=== PATIENT | female | born 1980 | race Caucasian/White ===

== ENCOUNTER 2024-02-14 11:03 | Inpatient (IN) | payer OTHER, SELFPAY ==
[2024-02-11 17:04] VITALS: BP 178/102
[2024-02-11 17:18] LABS: % Basophils 0.3 % (0-2); % Immature Granulocytes 0.3 % (0-0.5); % Lymphocytes 16.5 % (20.5-51.1); % Monocytes 4.7 % (1.7-9.3); % Neutrophils 77.2 % (42.2-75.2); Absolute Eosinophils 0.1 10^3/uL (0-0.7); Absolute Lymphocytes 1.9 10^3/uL (1.2-3.4); Absolute Monocytes 0.5 10^3/uL (0.1-0.6); Hematocrit 41.9 % (37.0-47.0); Hemoglobin 14.3 g/dL (12.0-16.0); Mean Corp Hgb Conc. 34.1 g/dL (33.0-37.0); Mean Corpuscular Hgb 29.4 pg (27.0-31.0); Mean Corpuscular Volume 86.2 fL (81.0-99.0); Mean Platelet Volume 10.6 fL (7.4-10.4); Nucleated Red Blood Cells % 0 %; Platelet Count 342 10^3/uL (130-400); Red Blood Cell Count 4.86 10^6/uL (4.20-5.40); Red Cell Dist. Width 12.5 % (11.5-14.5); White Blood Cell Count 11.6 10^3/uL (4.8-10.8)
[2024-02-11 17:36] LABS: HCG, Serum Qualitative Screen Negative
[2024-02-11 17:38] LABS: ALT (SGPT) 35 U/L (0-35); AST (SGOT) 25 U/L (14-36); Albumin 4.4 g/dl (3.5-5.0); Alkaline Phosphatase 80 U/L (38-126); Blood Urea Nitrogen 11 mg/dl (7-17); Calcium 10.1 mg/dl (8.4-10.2); Carbon Dioxide 24 mmol/L (22-30); Chloride 105 mmol/L (98-107); Glucose 97 mg/dl (70-99); Sodium 137 mmol/L (135-145); Total Bilirubin 1.1 mg/dl (0.2-1.3); eGFR > 60.00
--- NOTE | 2024-02-11 20:04 | ED.GENMED ---
History of Present Illness
General
Chief Complaint: Generalized Pain
Source: patient
Exam Limitations: none
Time Seen by Provider: 02/11/24 19:34
Travel History
Have you had any contact with someone who has COVID-19?: No
Do you have any symptoms of coronavirus? Fever > 100 degrees, chills, cough, shortness of breath, sore throat, loss of taste or smell, muscle aches, or headache?: No
History of Present Illness
History of Present Illness:
This is a 43 year old female that comes in with c/o pain. States that she has Complex regional pain syndrome. States that she has had a flare for the past 5 days. States that she normally only has pain in the one leg but now she has pain in both
legs. State that all her pain medication is not helping. She called her Pain management and was told to come to the ER. States that she also has left sided abd pain and did vomit today. States that she has a headache with dizziness. Denies any
fever, chills, chest pain, SOB, nausea, diarrhea, urinary burning.
Past History
Past History
ED Past Medical History: Psychiatric (Anxiety, Panic disorder) and Other (Migraine headaches, Renal calculus, Femur fracture, Complex regional pain syndrome); Negative Asthma
ED Past Surgical History: Orthopedic (ORIF left femur fx age 9)
Social History
Tobacco: Smoker
Alcohol: None
Drug: None
Personal:
Living: with family
Employment: Employed
Family History
Family History: Other (No family history of kidney stones)
Review of Systems
Review of Systems
All Other Systems: ROS reviewed and negative except as documented in HPI and ROS
Constitutional: Reports no symptoms; Denies fever or chills
EENT: Reports no symptoms
Respiratory: Reports no symptoms; Denies cough or trouble breathing
Cardiac: Reports no symptoms; Denies chest pain
ABD/GI: Reports abdominal pain and vomiting; Denies nausea or diarrhea
: Reports no symptoms; Denies dysuria, frequency or urgency
Musculoskeletal: Reports other (Bilateral leg pain)
Skin: Reports no symptoms
Neurological: Reports dizzy and headache
Psychiatric: Reports no symptoms
Phy Exam
General Physical Exam
General Presentation: no apparent distress
General age: appears stated age
General Skin: warm and dry
General Habitus: normal
General Mental: alert
General Hydration: dry mucous membranes
ENT Exam
ENT Exam: TM's normal, pharynx normal and neck supple
Eye Exam
Eye Exam: EOMI
Cardiovascular Exam
Cardiovascular Exam: regular rate/rhythm, no edema, no murmur and normal peripheral pulses
Pulmonary Exam
Pulmonary Exam: lungs clear, no respiratory distress, no rales, chest non tender, no crackles, no rhonchi, no wheezing and no cough
Gastrointestinal Exam
Gastrointestinal Exam: normal bowel sounds, soft, no organomegaly, no pulsatile mass, non distended and tender (Left sided abd tenderness with palpation)
Musculoskeletal Exam
Musculoskeletal Exam: full ROM and no edema
Skin Exam
Skin Exam: normal color, warm/dry, no rash and no petechia
Psychiatric Exam
Psychiatric Exam: normal mood/affect
Course
Orders/Labs/Results
Orders:
Orders
02/11/24 17:08
Test Result ONCE
02/11/24 17:12
Complete Blood Count/With Diff Urgent
Comprehensive Metabolic Panel Urgent
HCG, Serum Qualitative Screen Urgent
02/11/24 20:02
0.9% Sodium Chloride 1000 ml [Nss] 1,000 ml IV BOLUS
Dexamethasone Sod Phosphate [Decadron] 10 mg IV NOW STA
HYDROmorphone [Dilaudid] 1 mg IV NOW STA
Ketorolac [Toradol] 30 mg IV NOW STA
02/11/24 20:06
CT Abd/pelvis W Iv Cont Urgent
Comment:
Reason For Exam: Left sided abd pain
Abnormal Lab Results
02/11/24
17:12
WBC 11.6 H 10^3/uL
(4.8-10.8)
MPV 10.6 H fL
(7.4-10.4)
Absolute Neuts (auto) 9.0 H 10^3/uL
(1.4-6.5)
Neutrophils % 77.2 H %
(42.2-75.2)
Lymphocytes % 16.5 L %
(20.5-51.1)
02/11/24 17:12
02/11/24 17:12
WBC mildly elevated. HCG negative.
Vital Signs
Initial and Last Documented VS:
Initial Vital Signs
Temp Pulse Resp BP Pulse Ox
98.7 F 73 18 178/102 98
02/11/24 17:04 02/11/24 17:04 02/11/24 17:04 02/11/24 17:04 02/11/24 17:04
Last Documented Vital Signs
Temp Pulse Resp BP Pulse Ox
98.7 F 73 18 178/102 98
02/11/24 17:04 02/11/24 17:04 02/11/24 17:04 02/11/24 17:04 02/11/24 17:04
MDM/Problems Addressed
Differential Diagnosis Includes:
Diverticulitis, Chronic pain syndrome.
MDM/Problems Addressed:
This is a 43 year old female that comes in with c/o a 5 day flare of her CRPS. States that she has pain in both legs and today she started with vomiting. States that she has not been able to eat.
Will get CT of abd, Labs, Medicated for pain and give IV fluids.
Back into see patient. Patient is not feeling any better and states that she just wants the pain to stop. States that she can't go home with this pain. Will further medicate with pain medication and admit. Hospitalist notified.
Chronic conditions affecting care:
Complex regional pain syndrome.
Acute Exacerbation and/or Progression of Chronic Illness:
Chronic pain
*Radiology
Radiology exam reviewed: radiology read reviewed (CT-NO acute inflammatory process within the abd or pelvis. NO evidence of bowel obstruction. No obstructive uropathy. Nonspecific trace pleural effusion, right greater than left. Mild fatty
infiltration of liver. Stable top normal to slightly enlarged spleen. )
*Pulse Oximetry
Patient hypoxic: no
*EKG
Interpreted by ED Provider?: NA
Rate: EKG- N/A
*Sales Representative [employer] Interpretation
Rate: Sales Representative [employer]- N/A
*Critical Care Note
Total Time (30-74mins, 75-104mins- exclusive of procedures): Not Applicable
ED Attending Note
-
Portions of this chart may have been created with voice recognition software.� Occasional wrong word or��sound alike� substitutions may have occurred due to the inherent limitations of voice recognition software.
Discharge Plan
Departure
Patient Disposition: Admit
Date of Disposition: 02/11/24
Time of Disposition: 22:40
Admit to: Med/Surg
Presentation/result/management discussed w/ accepting MD/DO: Hospitalist
Patient with high blood pressure during this ER visit?: Yes
Condition: Good
Covid-19: Not Applicable
Discharge Problem:
Complex regional pain syndrome
Prescriptions:
No Action
tizanidine 2 mg Tablet
2 mg PO TID PRN (Reason: .asdirected)
sertraline 100 mg Tablet
100 mg PO DAILY
hydromorphone 2 mg Tablet
2 mg PO Q6H PRN (Reason: pain)
pregabalin [Lyrica] 100 mg Capsule
100 mg PO TID
albuterol sulfate [Proventil HFA] 90 mcg/actuation HFA aerosol inhaler
2 puff inhalation Q6H PRN (Reason: shortness of breath or wheezing) Qty: 8.5 2RF
prednisone 50 mg tablet
50 mg PO DAILY Qty: 5 0RF
Referrals:
Jimmy Delgado PA-C [Family Provider] -
Interventions
Interventions:
*Risk Screen - Suicide Last Done: 02/11/24 20:15
*General Assessment Last Done: 02/11/24 20:15
*Neglect/Abuse Screening Last Done: 02/11/24 20:15
*ED COVID-19 Vaccine History Last Done: 02/11/24 17:04
Discharge Date and Time
Print Language: [place]
[2024-02-11] MEDS: DILAUDID 1 MG IV ×2 (20:15→22:42)
[2024-02-11] MEDS: TORADOL 30 MG IV (20:16)
[2024-02-11] MEDS: DECADRON 10 MG IV (20:16)
[2024-02-11] MEDS: NSS 1000 IV (20:17)
[2024-02-11 22:46] VITALS: BP 169/87
--- NOTE | 2024-02-11 23:26 | HPS.HSE ---
Family Physician
-
Family Physician: Jimmy Delgado
Chief Complaint
-
pain
History of Present Illness
43-year-old female past medical history of chronic regional pain syndrome, anxiety, panic disorder, migraines, renal calculi, spinal degenerative disc disease presenting with severe pain.
Patient normally has chronic regional pain syndrome with pain of the left hip radiating down the lower extremity which is manageable by taking oxycodone 20 mg every 4-6 hours.
5 days ago she developed severe pain in the lower back and down both extremities as well as pain in the upper back radiating up to the posterior part of her head described as electric shock sensations. She also has pain down both arms. The pain is
described as burning and as though her extremities have fallen asleep. She denies any new stressors, medical conditions, change in medications to explain this flareup in symptoms. She did have an episode of vomiting today and some pain to left
groin. She denies constipation or diarrhea. She is having difficulty ambulating due to the pain.
She denies fevers or chills, urinary symptoms, chest pain or shortness of breath.
He smokes occasionally. Denies alcohol. Denies marijuana use.
Medical History
Past Medical History
Past Medical History: Reports Other (chronic regional pain syndrome, anxiety, panic disorder, migraines, renal calculi, spinal degenerative disc disease )
Past Surgical History: Reports None
Social History
Tobacco: Non-smoker
Alcohol: None
Drug: None
Family History
Family History: Not pertinent
Allergies / Home Medications
Allergies reflects when Allergies were last updated in [facility].
Home Medications with original date entered in [facility]
Allergy/Medication List:
Allergies
Allergy/AdvReac Type Severity Reaction Status Date / Time
No Known Allergies Allergy Verified 02/11/24 17:07
Home Medications
sertraline 100 mg tablet 100 mg PO BID 07/06/23
tizanidine 2 mg tablet 2 mg PO TID PRN muscle spasms 07/06/23
oxycodone 20 mg tablet 20 mg PO QID 02/11/24
pregabalin 150 mg capsule 150 mg PO TID 02/11/24
Review of Systems
-
History Source: Patient
A 12 point ROS was completed and negative except as noted: Yes
Constitutional: Reports No Symptoms
EENT: Reports No Symptoms
Respiratory: Reports No Symptoms
Cardiac: Reports No Symptoms
Abdomen/GI: Reports No Symptoms
: Reports No Symptoms
Musculoskeletal: Reports No Symptoms
Skin: Reports No Symptoms
Neurological: Reports No Symptoms
Endocrine: Reports No Symptoms
Hematologic/Lymphatic: Reports No Symptoms
Psych: Reports No Symptoms
Physical Exam
Vital Signs
Vital Signs
Temp Pulse Resp BP Pulse Ox
98.7 F 60 20 169/87 100
02/11/24 17:04 02/11/24 22:46 02/11/24 22:46 02/11/24 22:46 02/11/24 22:46
Physical Exam
General: Well Developed, Well Nourished and No Apparent Distress
HEENT: NormoCephalic, Moist mucous membranes and Atraumatic
Respiratory: Clear
Cardiac: S1/S2 and Regular Rhythm; No Murmur or Rub
GI: Soft, Non Tender, Non Distended and Normal Bowel Sounds; No Organomegaly
Rectal: Deferred by Provider
Musculoskeletal: No Clubbing, No Cyanosis and No Edema
Skin: No Rash
Neuro: Nonfocal/grossly intact
Laboratory Results
-
02/11/24 17:12
02/11/24 17:12
Laboratory Results
Total Bilirubin 1.1 mg/dl (0.2-1.3) 02/11/24 17:12
AST 25 U/L (14-36) 02/11/24 17:12
ALT 35 U/L (0-35) 02/11/24 17:12
Alkaline Phosphatase 80 U/L (38-126) 02/11/24 17:12
Data Reviewed
-
Lab Data: Labs Reviewed by me
Old Records: Reviewed
Impression/Plan
-
IMPRESSION:
PLAN:
# Complex regional pain syndrome flare
-CT abdomen pelvis without evidence of any acute process
-IV fluids given
-Given IV Dilaudid, ketorolac, dexamethasone in ER with only temporary relief in pain
-Add tylenol
-Continue Toradol, Dilaudid for pain
-Increase Dilaudid to 1.5 mg which is roughly equivalent to 20 mg oxycodone which she takes at home
-Continue tizanidine
-Continue pregabalin
-Would likely benefit from SNRI such as duloxetine instead of sertraline
-May need to discuss with her pain management doctor regarding management
History of spinal degenerative disc disease
Anxiety/panic disorder
-Continue sertraline
History of migraines
History of renal calculi
Full code
DVT prophylaxis�heparin
Regular diet
[2024-02-12] MEDS: TORADOL 30 MG IV ×4 (02:03→20:10)
[2024-02-12 02:28] VITALS: BP 147/93
[2024-02-12] MEDS: DILAUDID 1.5 MG IV ×4 (06:03→21:56)
[2024-02-12 06:27] LABS: % Basophils 0.1 % (0-2); % Eosinophils 0.1 % (0-6); % Immature Granulocytes 0.6 % (0-0.5); % Lymphocytes 9.1 % (20.5-51.1); % Monocytes 0.9 % (1.7-9.3); % Neutrophils 89.2 % (42.2-75.2); Absolute Immature Granulocytes 0.1 10^3/uL (0-0.05); Absolute Lymphocytes 1.4 10^3/uL (1.2-3.4); Absolute Monocytes 0.1 10^3/uL (0.1-0.6); Absolute Neutrophils 13.5 10^3/uL (1.4-6.5); Hematocrit 44.4 % (37.0-47.0); Hemoglobin 14.8 g/dL (12.0-16.0); Mean Corp Hgb Conc. 33.3 g/dL (33.0-37.0); Mean Corpuscular Hgb 29.1 pg (27.0-31.0); Mean Corpuscular Volume 87.4 fL (81.0-99.0); Mean Platelet Volume 10.9 fL (7.4-10.4); Nucleated Red Blood Cells % 0 %; Platelet Count 360 10^3/uL (130-400); Red Blood Cell Count 5.08 10^6/uL (4.20-5.40); Red Cell Dist. Width 12.2 % (11.5-14.5); White Blood Cell Count 15.1 10^3/uL (4.8-10.8)
[2024-02-12 06:57] LABS: ALT (SGPT) 32 U/L (0-35); AST (SGOT) 21 U/L (14-36); Albumin 4.4 g/dl (3.5-5.0); Alkaline Phosphatase 86 U/L (38-126); Blood Urea Nitrogen 12 mg/dl (7-17); Calcium 10.1 mg/dl (8.4-10.2); Carbon Dioxide 20 mmol/L (22-30); Chloride 106 mmol/L (98-107); Glucose 130 mg/dl (70-99); Potassium 4.4 mmol/L (3.5-5.1); Sodium 137 mmol/L (135-145); eGFR > 60.00
[2024-02-12 07:00] VITALS: BP 198/73
[2024-02-12] MEDS: LYRICA 150 MG PO ×3 (07:32→21:55)
[2024-02-12] MEDS: HEPARIN 5000 UNITS SC ×2 (07:32→20:10)
[2024-02-12] MEDS: TYLENOL 650 MG PO ×2 (07:33→14:07)
[2024-02-12 07:39] VITALS: BMI 31.9
[2024-02-12] MEDS: ZOLOFT 100 MG PO ×2 (08:21→20:10)
[2024-02-12] MEDS: ZANAFLEX 2 MG PO ×2 (09:31→14:07)
--- NOTE | 2024-02-12 12:29 | W.PN.HOSP.TC ---
Today's Communication/Plan
-
Change Toradol to [id number]
Assessment / Plan
Assessment / Plan
Gen-AAOx3, NAD, obese
HEENT-NC, AT, anicteric, clear oral mm
Neck-supple
CV-reg, no M, +S1/S2
Lungs-clear B/L
Abd-soft, NT, ND
Ext-no edema
Musculoskeletal-no cyanosis, clubbing
Skin-warm and dry
Neuro-4/5 LLE & RUE motor
Psych-calm, cooperative
Intractable pain -with underlying complex regional pain syndrome as the likely trigger. She is followed by pain management, Dr. Chad Fajardo as an outpatient. I left a voicemail for Dr. Fajardo to call me back. [phone].
Change Toradol to [id number]. Continue Lyrica. She has been on chronic oxycodone 20 mg 4 times daily. Currently on IV Dilaudid.
PT/OT.
Would consider changing her sertraline to Cymbalta for better pain control, can be done as an outpatient. Discussed with patient.
Anxiety disorder
Obesity due to excess calories
Full code
Anticipated Discharge: Within 24 hours
Subjective/Interval History
-
Date of Service: February 12, 2024
Patient seen and examined. Complaining of bilateral lower extremity pain, mostly left sided.
Objective Data
-
Labs:
Laboratory Results
02/12/24 02/12/24
05:59 06:00
WBC 15.1 H
Hgb 14.8
Hct 44.4
Plt Count 360
Sodium 137
Potassium 4.4
Chloride 106
Carbon Dioxide 20 L
BUN 12
Creatinine 0.6
Glucose 130 H
Calcium 10.1
Total Bilirubin 1.0
AST 21
ALT 32
Alkaline Phosphatase 86
Vital Signs:
Vital Signs
Temp Pulse Resp BP Pulse Ox
98.5 F 73 12 198/73 99
02/12/24 07:00 02/12/24 07:00 02/12/24 07:00 02/12/24 07:00 02/12/24 07:00
Review of Systems
-
History Source: Patient
All other systems: Reviewed and negative
[2024-02-12 14:14] VITALS: BP 136/91
[2024-02-12 16:24] VITALS: BP 149/81
[2024-02-12 16:28] VITALS: BMI 30.4
--- NOTE | 2024-02-12 17:07 | PTCARENOTE ---
Received pt from ER via stretcher, accompanied by ER staff. Pt AAO x3, ROMERO; able to ambulate to bed with assistance/walker, c/o [pain in lower back/legs. Fall prec initiated. VSS. On room air- pulseox 99%. Abd obese, soft, to start reg diet.
Pt DTV- will void in BR. Resting in bed at present. Oriented to 4East. Will continue to monitor.
[2024-02-12] MEDS: FLUSH (NSS) 1 FLUSH IV (17:14)
[2024-02-12 23:30] VITALS: BP 148/83
[2024-02-13] MEDS: TORADOL 30 MG IV ×4 (01:31→20:59)
[2024-02-13 07:55] VITALS: BP 150/99
[2024-02-13] MEDS: ZOLOFT 100 MG PO ×2 (08:39→20:59)
[2024-02-13] MEDS: LYRICA 150 MG PO ×3 (08:39→22:09)
[2024-02-13] MEDS: DILAUDID 1.5 MG IV ×2 (08:40→20:02)
[2024-02-13] MEDS: HEPARIN 5000 UNITS SC ×2 (08:48→21:06)
--- NOTE | 2024-02-13 10:03 | W.PN.HOSP.TC ---
Today's Communication/Plan
-
Resume oxycodone [id number]
Assessment / Plan
Assessment / Plan
Gen-AAOx3, NAD, obese
HEENT-NC, AT, anicteric, clear oral mm
Neck-supple
CV-reg, no M, +S1/S2
Lungs-clear B/L
Abd-soft, NT, ND
Ext-no edema
Musculoskeletal-no cyanosis, clubbing
Skin-warm and dry
Neuro-4/5 LLE & RUE motor
Psych-calm, cooperative
Intractable pain -with underlying complex regional pain syndrome as the likely trigger. She is followed by pain management, Dr. Chad Fajardo as an outpatient. I left a voicemail for Dr. Fajardo to call me back on 02/11, no received a call back.
[phone]. I called again today on 02/12 and I got a hold of the receptionist doctor's office who took down my callback number to my cell phone, requested Dr. Fajardo to call me back.
Continue Toradol [id number]. Continue Lyrica. She has been on chronic oxycodone 20 mg 4 times daily, will resume. Continue as needed IV Dilaudid.
PT/OT.
Would consider changing her sertraline to Cymbalta for better pain control, can be done as an outpatient. Discussed with patient.
Anxiety disorder
Obesity due to excess calories
Full code
Updated at bedside.
Anticipated Discharge: Within 24 hours
Subjective/Interval History
-
Date of Service: February 13, 2024
Patient seen/examined. Still with significant pain, mainly in left buttock and LLE. 8/10 intensity.
Objective Data
-
Vital Signs:
Vital Signs
Temp Pulse Resp BP Pulse Ox
98.1 F 61 20 150/99 99
02/13/24 07:55 02/13/24 07:55 02/13/24 07:55 02/13/24 07:55 02/13/24 07:55
I&O
02/12/24 02/13/24 02/14/24
06:59 06:59 06:59
Intake Total 250 / 250
Balance 250 / 250
Review of Systems
-
History Source: Patient
All other systems: Reviewed and negative
[2024-02-13] MEDS: ROXICODONE 20 MG PO ×3 (12:27→22:09)
--- NOTE | 2024-02-13 12:28 | CM ---
Chart reviewed and Elizabeth visited bedside. She is a 42 year old female, admitted with primary dx of comples regional pain syndrome.
Elizabeth resides in a ranch home with 1 entry step, along with her and 4 children, ages 5-18yo. 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 The patient has a walker and uses
it as needed 'when pain gets bad'. Pt reports she was receiving outpatient physical therapy at in the past.
PCP - Jimmy Delgado [phone]
Pharmacy - [facility] in [place], [place]
D/C plan: Return home with family once pain control has been established. No needs anticipated
--- NOTE | 2024-02-13 14:38 | CON.NEURO4 ---
Consultation - Neurology 4
-
CONSULTING PHYSICIAN: Alejandro Waddell
REFERRING PHYSICIAN: Hospitalist
DICTATED BY: Alejandro Waddell
DATE/TIME OF REQUEST: 02/13/24
DATE/TIME OF CONSULTATION: 02/13/24
Reason for Consultation: Reflex sympathetic dystrophy worsening
History of Present Illness:
Patient is a 43-year-old woman with past medical history of obesity, migraines, anxiety, reflexive dystrophy mainly involving the bilateral legs presents to the hospital with worsening pain over the past 7 days.
Patient cannot think of any significant stressors or physical trauma or illnesses that led to this worsening of pain. She did have a little bit of tying in a dog leash when she was walking her dog around 10 days ago but she felt fine afterwards.
Denies any recent fever chills or sick contacts normal bowel and bladder function no rashes and no recent head or neck trauma. Has a normal stressors of having a big family but denies any recent serious psychosocial stressors or trauma.
She denies any recent changes in her regimen pregabalin or oxycodone. Reports that she was changed from hydromorphone to oxycodone around 3 to 4 months ago as the hydromorphone seem to be less effective over time. She has been on the hydromorphone
for around 7 months by her estimation. She has seen an increase in her chronic average daily pain over the past year.
She reports she did have a EMG study around 3 months ago but was not quite sure of the exact diagnosis, reports that there did seem to be some abnormalities in sensation as well as speed of the nerves.
I had seen her approximately 1 year ago and I thought that she had diabetic/idiopathic amyotrophy as cause of pain.
Past Medical History: Prediabetes, migraine headache, anxiety, degenerative disc disease of spine, reflex sympathetic dystrophy involving left and right legs
Surgical History: None
Family History: Non-contributory
Social History: Lives at home with her , has 4 children, one of her children graduating high school soon, rare cigarettes, no significant alcohol
Allergies: No known drug allergies
Review of Symptoms:
Patient denies any fever, headache, chest pain, shortness of breath, GI or symptoms.
Physical Exam:
Middle-aged woman seated in bed appears comfortable no distress, no signs of head or neck trauma oropharynx is clear eyes are clear neck with no masses, heart rate regular breathing unlabored abdomen is obese soft nontender, no lower extremity rash
redness or edema is seen. Some cracking of fingernails on the hands bilaterally.
Neurologic Examination:
The patient is awake, alert and oriented x 3. She is able to follow commands and answer questions appropriately. There is no aphasia or dysarthria. On cranial nerve assessment, pupils are 3 mm bilateral, round and reactive to light and
accommodation. Visual esposito are full. Extraocular movements are intact. Facial sensations are intact and bilaterally symmetrical, there is no facial asymmetry. Hearing is intact bilaterally to normal conversation volume. Tongue palate and uvula
are midline. Sternocleidomastoid strengths are full bilaterally. Mild pain limited weakness of left hip flexion. Shoulder abduction and arm flexion 5/5 bilaterally. There is no drift or involuntary movement noted. Reflexes 2+ in achilles patella
biceps and brachioradialis. Intact to vibratory sense throughout, no allodynia on light touch to lets. There was no extinction noted on double simultaneous stimulation. Coordination is intact by finger to nose bilaterally.
Impressions
1. Likely a reflex sympathetic dystrophy given pain, sensory change, motor dysfunction. I do have concern for the potential for opioid-induced hyperalgesia playing a role. Not many other obvious triggers for the current worsening of symptoms.
Not clear on what her previous EMG results were and if there was neuropathy or nerve injury present.
2.
3.
4.
Recommendations:
1. Would increase Pregabalin to 150 mg QID
2. Try 125 mg IV methylprednisolone once tomorrow morning
3. Discussed potential for further advanced pain treatments such as ketamine infusions or spinal cord stimulator as options to consider for the future
4. Discussed my concern for the potential presence of opioid induced hyperalgesia
5. Monitor for excessive drowsiness from medications
6. Agree with consideration for switching sertraline to Duloxetine as outpatient
7. Continue to follow with pain medicne as outpatient
Discussed patient care with: Patient, Hospitalist
[2024-02-13 15:55] VITALS: BP 142/82
[2024-02-13] MEDS: ZANAFLEX 2 MG PO (18:26)
[2024-02-13 23:57] VITALS: BP 133/77
[2024-02-14] MEDS: TORADOL 30 MG IV ×4 (02:41→20:20)
[2024-02-14] MEDS: ROXICODONE 20 MG PO ×4 (08:23→22:57)
[2024-02-14] MEDS: LYRICA 150 MG PO ×4 (08:23→22:56)
[2024-02-14] MEDS: HEPARIN 5000 UNITS SC ×2 (08:24→20:27)
[2024-02-14] MEDS: ZOLOFT 100 MG PO ×2 (08:24→20:20)
[2024-02-14] MEDS: SOLU-MEDROL PF 125 MG IV (08:29)
[2024-02-14 09:21] VITALS: BP 143/83
--- NOTE | 2024-02-14 10:25 | W.PN.HOSP.TC ---
Today's Communication/Plan
-
Continue current care
Assessment / Plan
Assessment / Plan
Gen-AAOx3, moderate distress due to pain, obese
HEENT-NC, AT, anicteric, clear oral mm
Neck-supple
CV-reg, no M, +S1/S2
Lungs-clear B/L
Abd-soft, NT, ND
Ext-no edema
Musculoskeletal-no cyanosis, clubbing
Skin-warm and dry
Neuro-4/5 LLE & RUE motor
Psych-calm, cooperative
Intractable pain -with underlying complex regional pain syndrome as the likely trigger. She is followed by pain management, Dr. Chad Fajardo as an outpatient. I was able to call Dr. Fajardo's cell phone ([phone]) and left a voicemail for him to
call me back this morning.
Continue Toradol [id number]. Continue Lyrica. She has been on chronic oxycodone 20 mg 4 times daily, will resume. Continue as needed IV Dilaudid.
PT/OT.
Would consider changing her sertraline to Cymbalta for better pain control, can be done as an outpatient. Discussed with patient.
Appreciate neurology input. Lyrica dose increased. Methylprednisolone administered this morning.
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 Discussed with patient and explained that ultimately coming off of long-term opioids would be the best treatment.
Anxiety disorder
Obesity due to excess calories
Full code
Dispo -if we can get her pain under reasonable control then she can be discharged and follow-up closely with pain management. Patient agrees with plan.
Anticipated Discharge: 24 - 48 hours
Subjective/Interval History
-
Date of Service: February 14, 2024
Patient seen and examined. Still with significant pain. Last night her pain level was down to 7 out of 10. Able to ambulate with walker.
Objective Data
-
Vital Signs:
Vital Signs
Temp Pulse Resp BP Pulse Ox
99 F 63 20 143/83 97
02/14/24 09:21 02/14/24 09:21 02/14/24 09:21 02/14/24 09:21 02/14/24 09:21
I&O
02/13/24 02/14/24 02/15/24
06:59 06:59 06:59
Intake Total 250 / 250 1700 / 1700
Balance 250 / 250 1700 / 1700
Review of Systems
-
History Source: Patient
All other systems: Reviewed and negative
[2024-02-14] MEDS: DILAUDID 1.5 MG IV ×2 (10:53→21:26)
[2024-02-14] MEDS: ZANAFLEX 2 MG PO (13:52)
[2024-02-14 16:43] VITALS: BP 123/74
--- NOTE | 2024-02-14 18:30 | CM ---
Elizabeth continues with Chronic pain and anxiety, limiting her mobility. She is working with therapy with a goal to return home and the hope that her pain decreases sooner than later. Family is supportive.
Plan: Discharge to home with no services anticipated at this time.
--- NOTE | 2024-02-14 19:48 | PTCARENOTE ---
Received patient this am AAOx3. Pt complained of pain this am. Pt medicated with standing pain medications with moderated relief. 1045 Pt complained of 9/10 pain in left groin,left hip and left back. Medicated with Dilaudid 1.5 mg IV with relief.
Pt tolerated diet. Pt OOB with assistance x 1-2 and walker to bathroom. 1345 Pt complained of muscle spasms in left groin an leg. Medicated with Zanaflex with relief. Spoke to Dr. Angelo regarding patients pain. Made patient comfortable. Cont to
assess patient status.
[2024-02-14 23:00] VITALS: BP 140/79
[2024-02-15] MEDS: ZANAFLEX 2 MG PO (00:37)
[2024-02-15] MEDS: TORADOL 30 MG IV ×4 (01:02→19:59)
[2024-02-15] MEDS: DILAUDID 1.5 MG IV ×4 (03:15→21:06)
[2024-02-15 07:36] VITALS: BP 160/93
[2024-02-15] MEDS: ROXICODONE 20 MG PO ×4 (07:47→22:15)
[2024-02-15] MEDS: LYRICA 150 MG PO ×4 (07:47→22:15)
[2024-02-15] MEDS: ZOLOFT 100 MG PO ×2 (07:47→20:00)
[2024-02-15] MEDS: HEPARIN 5000 UNITS SC ×2 (07:47→20:00)
--- NOTE | 2024-02-15 10:43 | W.PN.HOSP.TC ---
Today's Communication/Plan
-
Add melatonin
Await anesthesia input
Assessment / Plan
Assessment / Plan
Gen-AAOx3, moderate distress due to pain, obese
HEENT-NC, AT, anicteric, clear oral mm
Neck-supple
CV-reg, no M, +S1/S2
Lungs-clear B/L
Abd-soft, NT, ND
Ext-no edema
Musculoskeletal-no cyanosis, clubbing
Skin-warm and dry
Neuro-4/5 LLE & RUE motor
Psych-calm, cooperative
Intractable pain -with underlying complex regional pain syndrome as the likely trigger. She is followed by pain management, Dr. Chad Fajardo as an outpatient. So far I have not received a call back from Dr. Fajardo. I tried calling again this
morning but only got voicemail.
Continue Toradol [id number]. Continue Lyrica, oxycodone. Continue as needed IV Dilaudid.
PT/OT.
Would consider changing her sertraline to Cymbalta for better pain control, can be done as an outpatient. Discussed with patient.
Appreciate neurology input. Lyrica dose increased. Methylprednisolone administered this morning.
Agree with possibility of opioid-induced hyperalgesia as a furniture mover driver for her pain. Discussed with patient and explained that ultimately coming off of long-term opioids would be the best treatment.
I did speak with on-call pain management physician Dr. Devi who recommended considering ketamine infusion. I spoke with the anesthesia service, Dr. Perez, to see if he is willing to administer ketamine for her pain control. He states he has
never administered ketamine for pain on an awake patient and will need to think about it. He will get back to me with his decision. Informed patient.
As a last resort patient will need to be discharged Saturday night early Saturday morning so that she can see her painter interior finish Dr. Fajardo in the office on Saturday for outpatient ketamine infusion.
Anxiety disorder -uses Xanax as needed at home.
Obesity due to excess calories
Full code
Dispo -if we can get her pain under reasonable control then she can be discharged and follow-up closely with pain management. Patient agrees with plan.
Anticipated Discharge: 24 - 48 hours
Subjective/Interval History
-
Date of Service: February 15, 2024
Patient seen and examined. 8 out of 10 pain still.
Objective Data
-
Vital Signs:
Vital Signs
Temp Pulse Resp BP Pulse Ox
98.4 F 60 16 160/93 99
02/15/24 07:36 02/15/24 07:36 02/15/24 07:36 02/15/24 07:36 02/15/24 07:36
I&O
02/14/24 02/15/24 02/16/24
06:59 06:59 06:59
Intake Total 1700 / 1700 1020 / 1020
Balance 1700 / 1700 1020 / 1020
Review of Systems
-
History Source: Patient
All other systems: Reviewed and negative
--- NOTE | 2024-02-15 11:16 | W.PN.UPDATE ---
Update Note
Progress Note Update
Spoke with anesthesia, Dr. Perez, recommends adding clonidine for pain control, lidocaine patches, resuming Xanax for anxiety, acetaminophen [id number].
Patient agrees with plan.
[2024-02-15] MEDS: TYLENOL 1000 MG PO ×3 (11:35→22:14)
[2024-02-15] MEDS: LIDOCAINE 4% PATCH 1 PATCH TOPICAL ×2 (11:37→11:38)
[2024-02-15] MEDS: CATAPRES 0.100000000000000006 MG PO (11:39)
[2024-02-15 15:58] VITALS: BP 124/72
[2024-02-15] MEDS: XANAX 0.5 MG PO (16:24)
--- NOTE | 2024-02-15 16:50 | PTCARENOTE ---
Pt. apical HR 38, Dr. Mesa made aware, orders to follow. Pt. placed on telemetry. Will continue to monitor and report on pt.
[2024-02-15 19:15] VITALS: BP 129/84
[2024-02-15] MEDS: MELATONIN 5 MG PO (22:15)
[2024-02-15] MEDS: TYLENOL PO (22:20)
[2024-02-15 23:47] VITALS: BP 140/83
[2024-02-16] MEDS: TORADOL 30 MG IV ×4 (03:19→21:09)
[2024-02-16 03:28] VITALS: BP 138/82
[2024-02-16 07:45] VITALS: BP 133/71
[2024-02-16] MEDS: LYRICA 150 MG PO ×4 (08:28→22:35)
[2024-02-16] MEDS: TYLENOL 1000 MG PO ×3 (08:28→21:15)
[2024-02-16] MEDS: ZOLOFT 100 MG PO ×2 (08:28→21:11)
[2024-02-16] MEDS: HEPARIN 5000 UNITS SC ×2 (08:29→21:10)
[2024-02-16] MEDS: ROXICODONE 20 MG PO ×4 (08:29→21:15)
[2024-02-16] MEDS: LIDOCAINE 4% PATCH 1 PATCH TOPICAL ×2 (08:33)
[2024-02-16] MEDS: DILAUDID 1.5 MG IV ×4 (09:42→22:36)
--- NOTE | 2024-02-16 10:50 | W.PN.HOSP.TC ---
Today's Communication/Plan
-
Continue current care
Assessment / Plan
Assessment / Plan
Gen-AAOx3, NAD, obese
HEENT-NC, AT, anicteric, clear oral mm
Neck-supple
CV-reg, no M, +S1/S2
Lungs-clear B/L
Abd-soft, NT, ND
Ext-no edema
Musculoskeletal-no cyanosis, clubbing
Skin-warm and dry
Neuro-4/5 LLE & RUE motor
Psych-calm, cooperative
Intractable pain -with underlying complex regional pain syndrome as the likely trigger. She is followed by pain management, Dr. Chad Fajardo as an outpatient. So far I have not received a call back from Dr. Fajardo. I tried calling again this
morning but only got voicemail.
Continue Toradol [id number]. Continue Lyrica, oxycodone. Continue as needed IV Dilaudid.
PT/OT.
Would consider changing her sertraline to Cymbalta for better pain control, can be done as an outpatient. Discussed with patient.
Appreciate neurology input. Lyrica dose increased. Methylprednisolone administered this morning.
Agree with possibility of opioid-induced hyperalgesia as a rivet driver for her pain. Discussed with patient and explained that ultimately coming off of long-term opioids would be the best treatment.
Slept better last night with melatonin, will continue.
Received 1 dose of clonidine and developed bradycardia, discontinued.
Anxiety disorder -uses Xanax as needed at home.
Obesity due to excess calories
Full code
Dispo -patient requesting discharge on Saturday morning so she can go see her dip painter on Saturday for ketamine infusion.
Anticipated Discharge: Within 24 hours
Subjective/Interval History
-
Date of Service: February 16, 2024
Patient seen and examined. Slept better last night. Pain 7.5 out of 10 currently.
Objective Data
-
Vital Signs:
Vital Signs
Temp Pulse Resp BP Pulse Ox
98.7 F 44 16 133/71 100
02/16/24 07:45 02/16/24 07:45 02/16/24 07:45 02/16/24 07:45 02/16/24 07:45
I&O
02/15/24 02/16/24 02/17/24
06:59 06:59 06:59
Intake Total 1020 / 1020 1999
Balance 1020 / 1020 1999
Review of Systems
-
History Source: Patient
All other systems: Reviewed and negative
[2024-02-16 11:10] VITALS: BP 131/93
[2024-02-16 15:59] VITALS: BP 146/94
[2024-02-16 19:54] VITALS: BP 120/87
[2024-02-16] MEDS: MELATONIN 5 MG PO (22:35)
[2024-02-16 23:00] VITALS: BP 122/59
[2024-02-17] MEDS: TORADOL 30 MG IV ×2 (03:30→08:19)
[2024-02-17 03:46] VITALS: BP 126/82
[2024-02-17] MEDS: DILAUDID 1.5 MG IV ×2 (04:18→10:13)
[2024-02-17 07:30] VITALS: BP 108/71
[2024-02-17] MEDS: LIDOCAINE 4% PATCH 1 PATCH TOPICAL ×2 (08:17→08:18)
[2024-02-17] MEDS: LYRICA 150 MG PO ×2 (08:18→12:52)
[2024-02-17] MEDS: ZOLOFT 100 MG PO (08:18)
[2024-02-17] MEDS: ROXICODONE 20 MG PO ×2 (08:18→12:52)
[2024-02-17] MEDS: TYLENOL 1000 MG PO (08:18)
[2024-02-17] MEDS: HEPARIN 5000 UNITS SC (08:19)
--- NOTE | 2024-02-17 09:05 | W.PN.HOSP.TC ---
Today's Communication/Plan
-
Discharge planning today.
Assessment / Plan
Assessment / Plan
Gen-AAOx3, NAD, obese
HEENT-NC, AT, anicteric, clear oral mm
Neck-supple
CV-reg, no M, +S1/S2
Lungs-clear B/L
Abd-soft, NT, ND
Ext-no edema
Musculoskeletal-no cyanosis, clubbing
Skin-warm and dry
Neuro-4/5 LLE & RUE motor
Psych-calm, cooperative
A/P:
Intractable pain -with underlying complex regional pain syndrome as the likely trigger. She is followed by pain management, Dr. Chad Fajardo as an outpatient. So far Dr Rose has not received a call back from Dr. Fajardo. Dr Rose tried calling
again but only got voicemail.
Continue Toradol [id number]. Continue Lyrica, oxycodone. Continue as needed IV Dilaudid.
PT/OT.
Would consider changing her sertraline to Cymbalta for better pain control, can be done as an outpatient. Discussed with patient.
Appreciate neurology input. Lyrica dose increased. Methylprednisolone administered.
Agree with possibility of opioid-induced hyperalgesia as a tilt tray driver for her pain. Discussed with patient and explained that ultimately coming off of long-term opioids would be the best treatment.
Slept better last night with melatonin, will continue.
Received 1 dose of clonidine and developed bradycardia, discontinued.
Patient called her pain specialist and they have an earlier appointment but she could not get it for him today or for this week. She is to remain with appointment of February 25 and try to see if they can move it to an earlier appointment later on but
it has been significantly challenged. I gave the option she might need to follow-up with PCP prior to her pain appointment. Dr. Rose has set up prescriptions for pain which understandably has to be short-term until she follows up with PCP and
pain services. Otherwise, plan to discharge her later today.
Anxiety disorder -uses Xanax as needed at home.
Obesity due to excess calories
Full code
Dispo -plan to discharge later today, afternoon and patient agreeable with plan. For consideration outpatient ketamine infusion.
Anticipated Discharge: Today
Subjective/Interval History
-
Date of Service: February 17, 2024
Patient's pain controlled with current regimen. No new complaints.
Objective Data
-
Vital Signs:
Vital Signs
Temp Pulse Resp BP Pulse Ox
98.3 F 65 18 126/82 98
02/17/24 03:46 02/17/24 03:46 02/17/24 03:46 02/17/24 03:46 02/17/24 03:46
I&O
02/16/24 02/17/24 02/18/24
06:59 06:59 06:59
Intake Total 1999 1600 / 1600 480 / 480
Balance 1999 1600 / 1600 480 / 480
[2024-02-17 09:07] VITALS: BP 108/71
[2024-02-17 11:47] VITALS: BP 133/83
--- NOTE | 2024-02-17 12:52 | W.DCSUMMARY ---
Discharge Summary
Discharge Data
Date of Admission: 02/14/24
Date of Discharge: 02/17/24
-
Pending Results: No
Hospital Course
Patient 43 years old female history of migraines, obesity, reflex dystrophy involving bilateral lower extremities came into the hospital with worsening pain. Patient culprit of exacerbation was unclear and neurology was consulted. There were some
changes on her pain regimen as listed on the discharge medications list and also she was given some steroids while inpatient. Possibility of opioid drug induced hyperalgesia was also contemplated. Consideration for changing sertraline to Cymbalta
as outpatient as well. Her pain was able to be tolerated. Otherwise she is hemodynamically stable. She is to follow-up with primary care physician and her pain specialist as outpatient. She is going to be discharged in stable condition today.
Discharge duration: 35 minutes
Discharge Plan
-
Patient Disposition: Home (Routine Discharge)
Discharge Diagnosis/Procedures: Complex regional pain syndrome, intractable pain
Condition: Fair
Diet: Regular
Activity: As tolerated
Driving Restrictions: As prior to admission
Bathing Restrictions: None
Activity Restrictions/Additional Instructions:
Follow-up with your pain management doctor on Saturday.
Referrals:
Jimmy Delgado PA-C [Family Provider] - in less than 1 week
Prescriptions:
New
lidocaine 4 % Adhesive Patch,Medicated
1 patch topical DAILY Qty: 7 0RF
Rx Instructions:
Apply to right anterior thigh
lidocaine 4 % Adhesive Patch,Medicated
1 patch topical DAILY Qty: 7 0RF
Rx Instructions:
Applied to left anterior thigh
pregabalin 75 mg Capsule
150 mg PO QID Qty: 30 0RF
melatonin 5 mg Tablet
5 mg PO HS Qty: 0 0RF
ibuprofen 800 mg tablet
800 mg PO Q6H PRN (Reason: Pain) Qty: 30 0RF
hydromorphone [Dilaudid] 4 mg tablet
4 mg PO Q6H PRN (Reason: severe pain) Qty: 14 0RF
Continued
tizanidine 2 mg Tablet
2 mg PO TID PRN (Reason: muscle spasms)
sertraline 100 mg Tablet
100 mg PO BID
oxycodone 20 mg tablet
20 mg PO QID Qty: 12 0RF
Discontinued
pregabalin 150 mg capsule
150 mg PO TID
Patient Comments:
02/11/2024: last filled 01/30/24, 90 tabs for 30 days from [facility]
Discharge Orders:
Discharge Patient (As Directed); Ordered 02/17/24
Ordered By: Dex Luna
Discharge Date and Time
Discharge Date/Time: 02/17/24 14:59
Print Language: [place]
--- NOTE | 2024-02-18 08:20 | CM ---
DISCHARGE: Elizabeth was discharged to home with no needs. provided transport.
--- NOTE | 2024-02-18 08:33 | CM ---
Elizabeth was discharged to home with her providing transportation to outpatient appointment with Pain Management doctor - Dr. Chad Fajardo.
No additional needs identified prior to discharge..
== END 2024-02-17 14:59 | disposition home or self-care (01) | DRG 74 ==
LOC: 4 EAST ACU 11:03
PROVIDERS: Emergency Medicine; ADMITTING PHYSICIAN Hospitalist; ATTENDING PHYSICIAN Hospitalist; CONSULT PHYSICIAN Student in an Organized Health Care Education/Training Program; EMERGENCY PHYSICIAN Emergency Medicine; FAMILY PHYSICIAN Physician Assistant Medical
DX: G90.523 Complex regional pain syndrome I of lower limb, bilateral (principal); F11.288 Opioid dependence with other opioid-induced disorder; F17.200 Nicotine dependence, unspecified, uncomplicated; F41.0 Panic disorder [episodic paroxysmal anxiety]; Z68.30 Body mass index [BMI] 30.0-30.9, adult; E66.09 Other obesity due to excess calories
CPT/HCPCS: 74177; 80053; 84703; 85025; 93005; 97116; 97163; Q9967

== ENCOUNTER 2024-12-15 19:50 | Inpatient (IN) | payer OTHER, SELFPAY ==
[2024-12-15] VITALS (8 sets, daily range): BP systolic 140–168; BP diastolic 80–116; BMI 28.1; BMI 30.4
[2024-12-15] MEDS: NSS 1000 IV (12:43)
[2024-12-15] MEDS: DILAUDID 2 MG IV (12:43)
[2024-12-15] MEDS: BENADRYL 12.5 MG IV (12:49)
[2024-12-15] MEDS: REGLAN 10 MG IV (12:50)
[2024-12-15 12:56] LABS: Urine Albumin 1+ (Neg - Trace); Urine Bilirubin Negative (Negative); Urine Character Clear (Clear); Urine Color Yellow; Urine Glucose Negative (Negative); Urine Ketone Negative (Negative); Urine Leukocyte Negative (Negative); Urine Nitrite Negative (Negative); Urine Occult Blood 4+ (Negative); Urine Urobilinogen Negative (Neg - 1+); Urine pH 6.5 (5.0-9.0)
[2024-12-15 13:06] LABS: % Basophils 0.3 % (0-2); % Eosinophils 2.4 % (0-6); % Immature Granulocytes 0.7 % (0-0.5); % Lymphocytes 21.1 % (20.5-51.1); % Monocytes 4.5 % (1.7-9.3); Absolute Eosinophils 0.3 10^3/uL (0-0.7); Absolute Immature Granulocytes 0.1 10^3/uL (0-0.05); Absolute Lymphocytes 2.2 10^3/uL (1.2-3.4); Absolute Monocytes 0.5 10^3/uL (0.1-0.6); Absolute Neutrophils 7.3 10^3/uL (1.4-6.5); Hematocrit 46.5 % (37.0-47.0); Hemoglobin 15.4 g/dL (12.0-16.0); Mean Corp Hgb Conc. 33.1 g/dL (33.0-37.0); Mean Corpuscular Hgb 29.2 pg (27.0-31.0); Mean Corpuscular Volume 88.2 fL (81.0-99.0); Mean Platelet Volume 10.9 fL (7.4-10.4); Nucleated Red Blood Cells % 0 %; Platelet Count 311 10^3/uL (130-400); Red Blood Cell Count 5.27 10^6/uL (4.20-5.40); Red Cell Dist. Width 12.8 % (11.5-14.5); White Blood Cell Count 10.3 10^3/uL (4.8-10.8)
[2024-12-15 13:11] LABS: ALT (SGPT) 55 U/L (0-35); AST (SGOT) 31 U/L (14-36); Albumin 4.9 g/dl (3.5-5.0); Alkaline Phosphatase 93 U/L (38-126); Blood Urea Nitrogen 13 mg/dl (7-17); Calcium 9.9 mg/dl (8.4-10.2); Carbon Dioxide 27 mmol/L (22-30); Chloride 106 mmol/L (98-107); Estimated Creatinine Clearance 118 ml/min; Glucose 106 mg/dl (70-99); Potassium 4.9 mmol/L (3.5-5.1); Sodium 141 mmol/L (135-145); Total Bilirubin 0.9 mg/dl (0.2-1.3); Total Protein 7.4 g/dl (6.3-8.2); eGFR > 60.00
[2024-12-15 13:45] LABS: Urine Red Blood Cell 40-50 /HPF (0-2); Urine Urothelial Cell 0-2 /LPF (FEW)
[2024-12-15 13:46] LABS: Urine Bacteria Few (Negative); Urine White Cell 0-2 /HPF (0-5)
[2024-12-15] MEDS: IMODIUM 4 MG PO (14:22)
[2024-12-15] MEDS: DILAUDID 1 MG IV ×3 (15:13→22:33)
--- NOTE | 2024-12-15 16:56 | ED.GENMED ---
History of Present Illness
General
Chief Complaint: Generalized Pain
Source: patient
Exam Limitations: none
Time Seen by Provider: 12/15/24 12:18
Nursing documentation reviewed up to this point in time: agreed with
History of Present Illness
History of Present Illness:
44-year-old female past medical history of anxiety panic disorder, CRPS some degree of chronic leg pain worsening over the past 2 weeks unable to tolerate the pain at home has been taking all prescribed pain medications as prescribed without relief.
Denies specific chest pain shortness of breath. Has had decreased appetite secondary to pain.
Past History
Past History
ED Past Medical History: Psychiatric (Anxiety, Panic disorder) and Other (Migraine headaches, Renal calculus, Femur fracture, Complex regional pain syndrome); Negative Asthma
ED Past Surgical History: Orthopedic (ORIF left femur fx age 9)
Social History
Tobacco: Smoker
Alcohol: None
Drug: None
Personal:
Living: with family
Employment: Employed
Family History
Family History: Other (No family history of kidney stones)
Review of Systems
Review of Systems
Allergies reviewed?: Yes
All Other Systems: ROS reviewed and negative except as documented in HPI and ROS
Phy Exam
Physical Exam
Physical Exam:
GENERAL: Alert , in no apparent distress
EYE: pupils equal and reactive
NECK: Supple, no significant adenopathy.
ENT: o/p clr, mmm.
CARDIAC: Regular rate and rhythm .
LUNGS: Clear breath sounds bilaterally, no acute respiratory distress, no wheezes/rales/rhonchi
ABDOMEN: Soft, without focal tenderness, no r/g, no cvat
NEUROLOGICAL: Alert and oriented, no focal neuro deficits
SKIN: Warm and dry, skin intact.
MUSCULOSKELETAL: No edema, well perfused.
PSYCH: Normal and appropriate interaction.
Course
Orders/Labs/Results
Orders:
Orders
12/15/24 12:28
0.9% Sodium Chloride 1000 ml [Nss] 1,000 ml IV BOLUS
Diphenhydramine [Benadryl] 12.5 mg IV NOW STA
HYDROmorphone [Dilaudid] 2 mg IV NOW STA
Metoclopramide [Reglan] 10 mg IV NOW STA
12/15/24 12:35
CBC/With Diff [Complete Blood Count/With Diff] Urgent
CMP [Comprehensive Metabolic Panel] Urgent
Urinalysis Reflex To Culture Urgent
Date Specimen was Collected: 12/15/24
Time Specimen was Collected: 12:30
Urine Microscopic Reflex Cult Urgent
12/15/24 14:17
Loperamide [Imodium] 4 mg PO NOW STA
12/15/24 15:06
HYDROmorphone [Dilaudid] 1 mg IV NOW STA
Abnormal Lab Results
12/15/24
12:35
MPV 10.9 H fL
(7.4-10.4)
Abs Immat Gran (auto) 0.1 H 10^3/uL
(0-0.05)
Absolute Neuts (auto) 7.3 H 10^3/uL
(1.4-6.5)
Immature Gran % 0.7 H %
(0-0.5)
Glucose 106 H mg/dl
(70-99)
ALT 55 H U/L
(0-35)
Ur Occult Blood Reflex 4+ A
(Negative)
Urine RBC 40-50 A /HPF
(0-2)
Urine Bacteria (Reflex) Few A
(Negative)
Urine Albumin (Reflex) 1+ A
(Neg - Trace)
12/15/24 12:35
12/15/24 12:35
Vital Signs
Initial and Last Documented VS:
Initial Vital Signs
Temp Pulse Resp BP Pulse Ox
97.5 F 66 16 168/116 98
04/01/25 11:20 12/15/24 11:20 12/15/24 11:20 12/15/24 11:20 12/15/24 11:20
Last Documented Vital Signs
Temp Pulse Resp BP Pulse Ox
97.5 F 66 16 146/92 99
12/15/24 11:20 12/15/24 11:20 12/15/24 11:20 12/15/24 14:00 12/15/24 13:35
MDM/Problems Addressed
MDM/Problems Addressed:
44-year-old female presenting to the emergency department today with concerns of left leg left arm pain similar to CRPS. Pain is very severe at home despite high doses of opioids. Here initial blood pressure elevated otherwise vital signs are
normal. Patient was given dose of Dilaudid with still ongoing pain given second dose of Dilaudid still severe pain patient claims that the pain is very uncontrolled concerned this plan to admit for further monitoring and treatment.
*Critical Care Note
Total Time (30-74mins, 75-104mins- exclusive of procedures): Not Applicable
ED Attending Note
-
Portions of this chart may have been created with voice recognition software.� Occasional wrong word or��sound alike� substitutions may have occurred due to the inherent limitations of voice recognition software.
Discharge Plan
Departure
Patient Disposition: Admit
Date of Disposition: 12/15/24
Time of Disposition: 17:00
Admit to: Med/Surg
Admit to doctor: Htay
Presentation/result/management discussed w/ accepting MD/DO: Hospitalist
Patient with high blood pressure during this ER visit?: No
Condition: Good
Covid-19: Not Applicable
Discharge Problem:
Pain in extremity
Prescriptions:
No Action
tizanidine 2 mg Tablet
2 mg PO TID PRN (Reason: muscle spasms)
sertraline 100 mg Tablet
100 mg PO BID
lidocaine 4 % Adhesive Patch,Medicated
1 patch topical DAILY Qty: 7 0RF
Rx Instructions:
Apply to right anterior thigh
lidocaine 4 % Adhesive Patch,Medicated
1 patch topical DAILY Qty: 7 0RF
Rx Instructions:
Applied to left anterior thigh
pregabalin 75 mg Capsule
150 mg PO QID Qty: 30 0RF
melatonin 5 mg Tablet
5 mg PO HS Qty: 0 0RF
ibuprofen 800 mg tablet
800 mg PO Q6H PRN (Reason: Pain) Qty: 30 0RF
hydromorphone [Dilaudid] 4 mg tablet
4 mg PO Q6H PRN (Reason: severe pain) Qty: 14 0RF
oxycodone 20 mg tablet
20 mg PO QID Qty: 12 0RF
Referrals:
Jimmy Delgado PA-C [Family Provider] -
Interventions
Interventions:
*Risk Screen - Suicide Last Done: 12/15/24 11:20
*Neglect/Abuse Screening Last Done: 12/15/24 11:20
Discharge Date and Time
Print Language: [place]
[2024-12-15] MEDS: TORADOL 15 MG IV (17:07)
--- NOTE | 2024-12-15 17:47 | HPS.HSE ---
Family Physician
-
Family Physician: Jimmy Delgado
Chief Complaint
-
Acute on chronic left arm and left lower leg pain
History of Present Illness
44 year old female complaining of chronic elbow dorsal and volar surface to wrist pain, left hip to lower leg pain dorsal and plantar surface worsening over the past 2 weeks unable to tolerate the pain at home. She reports she stopped her Zoloft
and was switched to Cymbalta [address] Fajardo [facility] she has an appointment with him on Saturday 3 days from now 12/18/2024. sHe has been taking all prescribed pain medications as prescribed but has not had any relief.
She has a chronic rash to bilateral hands left greater than right she picks the areas around her cuticles and has scaly plaques below them also a scaly plaque over the third MCP into the web of the third and fourth finger. She tells me she has a
dermatology appointment in a few weeks. She denies Cp, sob, H/a, fever , chills, abd pain , nausea, vomiting diarrhea or urinary symptoms. The patient has past medical history reflex dystrophy involving bilateral lower extremities chronic
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
Medical History
Past Medical History
Past Medical History: Reports Other
Additional Past Medical History:
chronic regional pain syndrome left arm, left leg x 2 years
anxiety
panic disorder
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
migraines
renal calculi
spinal degenerative disc disease
Active smoker
Past Surgical History: Reports None
Social History
Tobacco: Smoker (1/4 pack a day)
Alcohol: None
Drug: None
Personal:
Living: With Family
Employment: Not Employed
Family History
Family History: Early CAD (Maternal grandfather CAD/CABG early 40s) and Other (Father lung cancer mets to brain age 39, mother living hypertension)
Allergies / Home Medications
Allergies reflects when Allergies were last updated in [facility] [employer].
Home Medications with original date entered in [facility]
Allergy/Medication List:
Allergies
Allergy/AdvReac Type Severity Reaction Status Date / Time
No Known Allergies Allergy Verified 12/15/24 11:19
Home Medications
tizanidine 2 mg tablet 6 mg PO HS 07/06/23
alprazolam 0.5 mg tablet 0.5 mg PO DAILYPRN PRN anxiety 12/15/24
duloxetine 20 mg capsule,delayed release 20 mg PO DAILY 12/15/24
ibuprofen 125 mg-acetaminophen 250 mg tablet (Advil Dual Action) 2 tab PO Q8HPRN PRN mild pain 12/15/24
morphine 30 mg tablet,extended release 30 mg PO DAILY@19 12/15/24
oxycodone 20 mg tablet 20 mg PO DAILY@08,12,16,20 Pain 12/15/24
pregabalin 150 mg capsule 150 mg PO TID 12/15/24
Review of Systems
-
History Source: Patient
A 12 point ROS was completed and negative except as noted: Yes
Constitutional: Denies Fever, Fatigue or Chills
EENT: Denies Sore Throat or Runny Nose
Respiratory: Denies Cough or Trouble Breathing
Cardiac: Denies Chest Pain, Diaphoresis, Palpitations or Syncope
Abdomen/GI: Denies Abdominal Pain, Nausea, Vomiting, Diarrhea, Constipated, Bloody Stools or Black Stools
: Denies Dysuria, Frequency, Flank Pain, Incontinence, Difficulty Voiding or Urgency
Musculoskeletal: Denies Joint Pain or Edema
Skin: Denies Itching or Rash
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
fourth finger, left hip to foot dorsal and plantar surface); Denies Dizzy, Headache, Weakness or Numbness
Endocrine: Denies Polyuria, Polydipsia or Temp Intolerance
Hematologic/Lymphatic: Denies Bleeding
Psych: Reports Calm
Physical Exam
Vital Signs
Vital Signs
Temp Pulse Resp BP Pulse Ox
97.5 F 66 16 140/94 98
12/15/24 11:20 12/15/24 11:20 12/15/24 11:20 12/15/24 16:56 12/15/24 16:58
Physical Exam
General: Comfortable and Conversant; No Fever or Chills
HEENT: NormoCephalic, Anicteric, Moist mucous membranes, PERRLA, [place] Conjunctivae and No Ptosis
Respiratory: Clear; No Wheezes, Rales or Rhonchi
Cardiac: S1/S2 and Regular Rhythm; No Murmur, Rub, Gallop or Peripheral Edema
GI: Soft, Non Tender, Non Distended, Normal Bowel Sounds and No Hepatosplenomegaly
Rectal: Deferred by Provider
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
rash over third MCP into with the fourth finger, left hip to foot dorsal and plantar surface)
Skin: Warm and Dry; No Rash
Neuro: AO x 3, No Motor Deficits, Cranial Nerves Intact and No Sensory Deficits; No Slurred Speech, Facial Droop, Tremors or Sedated
Psych: Calm
Laboratory Results
-
12/15/24 12:35
12/15/24 12:35
Laboratory Results
Total Bilirubin 0.9 mg/dl (0.2-1.3) 12/15/24 12:35
AST 31 U/L (14-36) 12/15/24 12:35
ALT 55 U/L (0-35) H 12/15/24 12:35
Alkaline Phosphatase 93 U/L (38-126) 12/15/24 12:35
Data Reviewed
-
Lab Data: Labs Reviewed by me
Impression/Plan
-
Impression/plan:
Observation MedSurg
#Acute on chronic regional pain syndrome exacerbation left arm left leg
Patient follows with [facility] pain management [place] office Dr. Brantley has appointment 12/18/2024
-Continue Cymbalta 20 started 3 weeks ago when Zoloft was stopped
-Continue morphine 30 mg at 7pm
-Continue oxycodone 20 mg 08, 12, 16, 20
-Continue Lyrica 150 mg p.o. 3 times daily
-Continue tizanidine 6 mg p.o. at bedtime
-Add Dilaudid 1 mg every 4 hours as needed breakthrough pain
-Add bowel regimen
#Anxiety/panic disorder
-Continue Xanax 0.5 mg daily as needed
Continue Cymbalta 20 mg daily
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
-Patient has appointment with dermatology in a couple weeks
#Nicotine abuse
-1/4 pack cigarettes daily
-Cessation advised
Other PMH:
migraines hx -no current headache
renal calculi
spinal degenerative disc disease
DVT prophylaxis
-SCDs
Full code
--- NOTE | 2024-12-15 17:53 | W.PN.UPDATE ---
Update Note
Progress Note Update
This note serves as an addendum to the H&P by eddy current inspector BARBI Roxi DANG
HPI
44F HX migraines, obesity, reflex dystrophy involving bilateral lower extremities, chronic pain syndrome sen at ER:
- some degree of chronic leg pain worsening over the past 2 weeks
- unable to tolerate the pain at home has been taking all prescribed pain medications as prescribed without relief.
At ER:
IV Dilaudid total 4 mg ( 2 + 1 + 1)
IV Toradol 15mg
IV Benadryl 12.5
ROS
Denies specific chest pain shortness of breath. Has had decreased appetite secondary to pain.
Patient culprit of exacerbation was unclear and neurology was consulted. There were some changes on her pain regimen as listed on the discharge medications list and also she was given some steroids while inpatient. Possibility of opioid drug
induced hyperalgesia was also contemplated. Consideration for changing sertraline to Cymbalta as outpatient as well. Her pain was able to be tolerated. Otherwise she is hemodynamically stable. She is to follow-up with primary care physician and
her pain specialist as outpatient. She is going to be discharged in stable condition today.
PHX
Reviewed VS:
PE
Gen: obese
HEENT: anicteric, clear oral mm
Neck: supple
Lungs: CTA
Cor: RRR no mm, S1 S2
Abdomen: soft NT NG NRT
CHILDREN'S AUTHOR: AAO3, NFND
MS: no edema
Psych: calm, cooperative
Data
Last hospitalist admission: 02/14/24 - 02/17/24
P DXs; Complex regional pain syndrome, intractable pain
ASSESSMENT & PLAN
Pending Rx reconciliation
Flare up of chronic regional pain syndrome culprit of exacerbation was unclear
Intractable pain refractory pain control to OP chr pain regime
Possibility of opioid-induced hyperalgesia
- Primary pain management, Dr. Chad Fajardo as an outpatient.
- OP Pain regime ( Pregabalin 150 tid, Oxycodone 20mg q4H , Morphine 30mg HS, Tizanidine 6mg HS )
- c/w Lyrica, oxycodone.
- IV Toradol PRN for moderate pain
- PRN IV Dilaudid for severe and break thru pain
- c/w LUMBER INSPECTOR s Cymbalta
- To consider Methylprednisolone
- PT/OT
HX Anxiety disorder
-uses Xanax daily PRN
Obesity due to excess calories
DVT Px: LMWH
Code: Full code
IP TLM
[2024-12-15] MEDS: ROXICODONE 20 MG PO (20:30)
[2024-12-15] MEDS: LOVENOX 40 MG SC (20:30)
[2024-12-15] MEDS: MS CONTIN (EXTENDED RELEASE) 30 MG PO (21:34)
[2024-12-15] MEDS: ZANAFLEX 6 MG PO (21:59)
[2024-12-15] MEDS: LYRICA 150 MG PO (21:59)
--- NOTE | 2024-12-16 01:21 | PTCARENOTE ---
Pt. arrived to unit from ED via stretcher. Pt. able to safely ambulate with cane into room 339-1 on . Pt. AAOx3 and able to make needs known. Oriented to unit. Call vera within reach. Plan of care ongoing.
[2024-12-16] MEDS: DILAUDID 1 MG IV ×5 (01:51→21:15)
[2024-12-16 06:11] LABS: % Basophils 0.6 % (0-2); % Immature Granulocytes 0.4 % (0-0.5); % Lymphocytes 41.9 % (20.5-51.1); % Monocytes 5.6 % (1.7-9.3); % Neutrophils 48.5 % (42.2-75.2); Absolute Basophils 0.1 10^3/uL (0-0.2); Absolute Eosinophils 0.3 10^3/uL (0-0.7); Absolute Lymphocytes 3.6 10^3/uL (1.2-3.4); Absolute Monocytes 0.5 10^3/uL (0.1-0.6); Absolute Neutrophils 4.2 10^3/uL (1.4-6.5); Hematocrit 41.7 % (37.0-47.0); Hemoglobin 13.8 g/dL (12.0-16.0); Mean Corp Hgb Conc. 33.1 g/dL (33.0-37.0); Mean Corpuscular Hgb 29.4 pg (27.0-31.0); Mean Corpuscular Volume 88.9 fL (81.0-99.0); Mean Platelet Volume 10.9 fL (7.4-10.4); Nucleated Red Blood Cells % 0 %; Platelet Count 261 10^3/uL (130-400); Red Blood Cell Count 4.69 10^6/uL (4.20-5.40); Red Cell Dist. Width 12.9 % (11.5-14.5); White Blood Cell Count 8.6 10^3/uL (4.8-10.8)
[2024-12-16 06:29] LABS: ALT (SGPT) 45 U/L (0-35); AST (SGOT) 28 U/L (14-36); Albumin 3.6 g/dl (3.5-5.0); Alkaline Phosphatase 78 U/L (38-126); Blood Urea Nitrogen 15 mg/dl (7-17); Calcium 8.9 mg/dl (8.4-10.2); Carbon Dioxide 27 mmol/L (22-30); Chloride 107 mmol/L (98-107); Estimated Creatinine Clearance 95 ml/min; Glucose 95 mg/dl (70-99); Potassium 4.4 mmol/L (3.5-5.1); Sodium 141 mmol/L (135-145); Total Bilirubin 0.6 mg/dl (0.2-1.3); Total Protein 5.8 g/dl (6.3-8.2); eGFR > 60.00
[2024-12-16 07:15] VITALS: BP 132/91
[2024-12-16] MEDS: CYMBALTA DELAYED RELEASE 20 MG PO (07:56)
[2024-12-16] MEDS: ROXICODONE 20 MG PO ×4 (07:56→20:04)
[2024-12-16] MEDS: LYRICA 150 MG PO ×3 (07:56→22:26)
[2024-12-16 09:15] VITALS: BP 156/103; BP 174/105; PULSE 63; O2SAT 97
[2024-12-16 10:04] VITALS: BP 156/103; BP 174/105; PULSE 63; O2SAT 97
[2024-12-16 10:11] VITALS: BP 156/103; BP 174/105; PULSE 66
--- NOTE | 2024-12-16 10:45 | W.PN.HOSP.TC ---
Addendum entered and electronically signed by Yeyo Romero MD 12/17/24 10:12:
Chronic opioid use with dependence
Original Note:
Today's Communication/Plan
-
see bold
Assessment / Plan
Assessment / Plan
Patient seen and examined with LA NENA Alvarez present at bedside for the entirety of the interview and physical exam:
Gen: NAD, AAOx3.
Eyes: EOMI, PERRLA, no scleral icterus.
Neck: supple.
CV: RRR, +S1/S2, no m/r/g.
Resp: CTAB, no rales, wheezes, or rhonchi.
Neuro: CN 2-12 intact
Psych: Normal mood and affect.
Acute on chronic regional pain syndrome:
-exacerbation in L arm/leg
-Patient follows with [facility] pain management [place] office Dr. Brantley has appointment 12/18/2024
-Continue Cymbalta 20 started 3 weeks ago when Zoloft was stopped
-Continue morphine 30 mg at 7pm
-Continue oxycodone 20 mg 08, 12, 16, 20
-Continue Lyrica 150 mg p.o. 3 times daily
-Continue tizanidine 6 mg p.o. at bedtime
-cont bowel regimen
-I had an extensive conversation with the patient regarding pain management for CRPS. I explained that we will not be using IV Dilaudid. I can transition her to short acting oral Dilaudid for breakthrough pain but that I will not be able to give
her prescriptions for controlled substances on discharge. I did explain that her current condition does not require hospitalization that she would like to leave today she can be discharged. I will touch base with the patient's pain management
physician over the phone.
Other problems:
Anxiety/panic disorder: cont Xanax/Cymbalta
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
Tobacco abuse disorder: Encourage smoking cessation
Migraine headaches
Obesity due to excess calories, BMI 30.4
renal calculi
spinal degenerative disc disease
FULL/SCDs
Medically cleared for discharge. Should patient choose to stay in the hospital today, having been admitted within the last 24 hours, she can stay until tomorrow.
Anticipated Discharge: Within 24 hours
Subjective/Interval History
-
Date of Service: December 16, 2024
Pt c/o persistent L-sided pain.
Objective Data
-
Labs:
Laboratory Results
12/16/24
05:07
WBC 8.6
Hgb 13.8
Hct 41.7
Plt Count 261
Sodium 141
Potassium 4.4
Chloride 107
Carbon Dioxide 27
BUN 15
Creatinine 0.9
Glucose 95
Calcium 8.9
Total Bilirubin 0.6
AST 28
ALT 45 H
Alkaline Phosphatase 78
Vital Signs:
Vital Signs
Temp Pulse Resp BP Pulse Ox
98.3 F 67 14 132/91 98
12/16/24 07:15 12/16/24 07:15 12/16/24 07:15 12/16/24 07:15 12/16/24 08:00
I&O
12/15/24 12/16/24 12/17/24
06:59 06:59 06:59
Intake Total 480 / 480
Balance 480 / 480
--- NOTE | 2024-12-16 13:35 | W.PN.UPDATE ---
Addendum entered and electronically signed by Yeyo Romero MD 12/17/24 10:13:
Case discussed with Dr. Fajardo over the phone around 1900 on 12/16/24. As per his report pt had a recent punch Bx positive for CIPD.
Original Note:
Update Note
Progress Note Update
I called Dr. Fajardo's office (pt's pain management physician) at [phone] and left a message with his office staff to call me back to discuss this case.
[2024-12-16 15:15] VITALS: BP 148/72
[2024-12-16] MEDS: SOLU-MEDROL PF 125 MG IV (15:16)
[2024-12-16] MEDS: PROTONIX 20 MG PO (15:16)
[2024-12-16] MEDS: MINIPRESS 1 MG PO (15:18)
--- NOTE | 2024-12-16 16:40 | CM ---
Alert awake oriented patient who lives with her Tomasz and 4 kids who lives in 1 story home with 1 step .She is independent in driving and in all activities of daily living.Offered VN she declined.Observation letter given PT signed on chart.
No adaptive devices
Never had VN/SNF
Pharmacy [facility]
PCP Dr Delgado
PLAN Home no needs
[2024-12-16] MEDS: MS CONTIN (EXTENDED RELEASE) 30 MG PO (18:27)
[2024-12-16] MEDS: LOVENOX 40 MG SC (18:27)
[2024-12-16] MEDS: FLUSH (NSS) 2 FLUSH IV (21:18)
[2024-12-16] MEDS: ZANAFLEX 6 MG PO (22:26)
[2024-12-16] MEDS: TORADOL 15 MG IV (22:30)
[2024-12-16 23:10] VITALS: BP 155/70
[2024-12-17] MEDS: DILAUDID 1 MG IV ×4 (02:49→22:53)
[2024-12-17 07:05] VITALS: BP 134/93
[2024-12-17] MEDS: LYRICA 150 MG PO ×3 (07:52→21:44)
[2024-12-17] MEDS: ROXICODONE 20 MG PO ×4 (07:52→20:40)
[2024-12-17] MEDS: CYMBALTA DELAYED RELEASE 20 MG PO (07:52)
[2024-12-17] MEDS: PROTONIX 20 MG PO (07:52)
[2024-12-17 09:03] LABS: Glycohemoglobin (HgbA1c) 5.8 % (4.0-5.6)
[2024-12-17] MEDS: TORADOL 15 MG IV ×2 (09:18→19:27)
--- NOTE | 2024-12-17 09:26 | PN.CDI ---
Addendum entered and electronically signed by Vincent Burger MD 12/18/24 14:18:
Original Note:
CDI
- -
CDI:
Physician Documentation Request
Admit Date: 12/15/24 18:13
Dear Doctor Heather,
Patient admitted for regional pain syndrome.
12/17 Hospitalist PN: '-Continue morphine 30 mg at 7pm -Continue oxycodone 20 mg 08, 12, 16, 20'
If possible, please provide further specificity as outlined below:
Opioid dependence
Opioid use
Other
Use of terms such as suspected, likely, concern for, or probable (associated with a specific diagnosis that is being evaluated, monitored, or treated as if it exists) are acceptable and can be coded in the inpatient setting, when documented at the
time of discharge.
Thank you,
Amparo Winkler RN, BSN
CDI Specialist
Available via [place] text
Please use your independent medical judgment in providing your response.
--- NOTE | 2024-12-17 11:20 | CON.NEURO ---
Consultation
Order
Date of Consultation: 12/17/24
Requesting Provider: Vincent Burger MD
Reason for Consult: Polyneuropathy
Neurology Consultation Note.
HPI: This is a 44-year-old woman who presented to [facility] on 12/16/2023 with multiple .symptoms
According to the patient she has had worsening pain that has become unmanageable with home medications. Over the past three weeks, she has experienced poor appetite requiring using Liquid I.V.s to maintain hydration. Associated symptoms include
intermittent diarrhea and cognitive fog. The patient describes severe, constant burning and aching pain affecting her left side, particularly her hand. She reports paresthesia in her toes and hand, predominantly on the left side. The burning
sensation has persisted for two years. Ms. Li reportedly was diagnosed with complex regional pain syndrome had NCS/EMG indicative of polyneuropathy.
Elizabeth reports balance issues and requires a cane due to weakness in her left foot. She experiences allodynia, particularly discomfort wearing socks. The burning sensation intensified two weeks ago, described as feeling like 'boiling hot water.'
She also experiences muscle cramps with intermittent myoclonus. The left leg pain initially originated in her tailbone and left hip, progressing to her thigh, and later spreading to her left arm approximately one year ago. She occasionally
experiences pain in her right elbow as well.
Additional symptoms include episodic 'taser-like' sensations in her head, pruritus leading to excoriation, dizziness, visual disturbances (described as seeing prism shapes), frequent migraines, and a intermittent left tinnitus.
ER VS: 168/116, 66, afebrile
PDMP: Pregabalin 150 mg 6 capsules filled in on 11/24/2024, morphine 30 mg 30 tablets filled in on 11/24/2024, oxycodone 20 mg 128 tablets filled in on 11/24/2024, pregabalin 150 mg 84 capsules filled in on 11/24/2024, morphine 30 mg 10 tablets filled
in on 10/27/2024.
Total prescribers�12, total private pay�5.
MAR: Hydromorphone 1 mg twice daily, oxycodone 20 mg once a day, pregabalin 150 mg 3 times daily
Labs: Hemoglobin A1c�5.8, normal sodium, cr.
PMH: CRPS, Glucose intolerance, chronic opioid use, ZIA, BMI 30, nephrolithiasis, LS DJD
PSH: left femoral ORIF
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
FH: Father from metastatic lung cancer at 39, MGF�coronary artery disease
All:NKDA
ROS: Constitutional: Negative. Negative for chills, fever and unexpected weight change.
HENT: Positive for intermittent tinnitus on the left
Eyes: Negative. Negative for photophobia, pain and visual disturbance.
Respiratory: Negative for cough, choking and shortness of breath.
Cardiovascular: Negative for chest pain, palpitations and leg swelling.
Gastrointestinal: Negative for abdominal pain and vomiting.
Endocrine: Negative. Negative for cold intolerance.
Genitourinary: Negative for dysuria, flank pain and urgency.
Musculoskeletal: Positive for leg pain right elbow pain, muscle cramps
Skin: Positive for hand rash, pruritus
Allergic/Immunologic: Negative. Negative for immunocompromised state.
Neurological: Positive for left arm and leg burning pain, imbalance, remittent headaches
Psychiatric/Behavioral: Positive for labile mood
General: Well developed. In no acute distress.
Cardio: Regular rate and rhythm without murmur. Extremities are without cyanosis or edema.
Neuro:
Mental Status: Alert, oriented to person, place, and date. Normal attention and recall. Good fund of knowledge. Follows complex requests across the midline. Comprehension, naming, and repetition intact. Labile mood
Cranial Nerves: Pupils are equally round and reactive to light. EOMs full. Visual esposito full to confrontation. No ptosis. No nystagmus. V1-V3 intact to light touch and pinprick bilaterally, symmetric. Face symmetric. Normal hearing AU. The
palate elevated well. SCMs and traps 5/5. Tongue midline. No dysarthria.
Motor: Normal bulk and tone. No pronator or arm drift. Strength 5/5 throughout. No clonus.
Reflexes: 3+ throughout the upper extremities and knees. 4/2 in AJs. Positive Yonny bilaterally plantar responses flexor bilaterally.
Sensory: Reduced vibration in the toes
Coordination: No dysmetria or tremor.
Gait: deferred
Assessment and Plan:
I. SFN (small fiber polyneuropathy) Likely etiology-metabolic.
II. ZIA
III. Pathological hyperreflexia
IV. LS spine DJD
-Polyneuropathy/myelopathy blood work
-Dermatology consult
-Please obtain a copy of NCS/EMG report from [facility] Pain management
-Brain MRI wo zia/C spine MRI wo zia
I personally reviewed all radiology and labs along with past medical records pertinent to current medical problems. Total time spent in patient care is 60 minutes.
Thank you for allowing us to participate in the care of this patient. We will continue to follow. Please do not hesitate to contact us with any questions or concerns.
Subjective/Objective
Subjective Data
Date of Service: December 17, 2024
Objective Data
Vital Signs
Temp Pulse Resp BP Pulse Ox
36.4 C 91 18 134/93 98
12/17/24 07:05 12/17/24 07:05 12/17/24 07:05 12/17/24 07:05 12/17/24 07:05
Lab Results
12/16/24 05:07
12/16/24 05:07
Sodium 141 mmol/L (135-145) 12/16/24 05:07
Potassium 4.4 mmol/L (3.5-5.1) 12/16/24 05:07
BUN 15 mg/dl (7-17) 12/16/24 05:07
Glucose 95 mg/dl (70-99) 12/16/24 05:07
Calcium 8.9 mg/dl (8.4-10.2) 12/16/24 05:07
Patient Allergies
No Known Allergies Allergy (Verified 12/15/24 11:19)
Medications
-
Active Medications
Generic Name Dose Route Start Last Admin
Trade Name Freq PRN Reason Stop Dose Admin
Alprazolam 0.5 mg 12/15/24 19:50
Alprazolam 0.5 Mg Tablet PO 01/12/25 19:49
DAILYPRN PRN
anxiety
Bisacodyl 10 mg 12/15/24 19:50
Bisacodyl 10 Mg Rectal Suppository RECTAL 01/12/25 19:49
[id number] PRN
constipation
Duloxetine HCl 20 mg 12/16/24 08:00 12/17/24 07:52
Duloxetine Delayed Release 20 Mg Capsule PO 01/13/25 07:59 20 mg
DAILY RENY Administration
Enoxaparin Sodium 40 mg 12/15/24 19:50 12/16/24 18:27
Enoxaparin Sodium 40 Mg/0.4 Ml Syringe SC 01/12/25 19:49 40 mg
QPM RENY Administration
Hydromorphone HCl 1 mg 12/16/24 14:19 12/17/24 10:58
Hydromorphone 1 Mg/Ml Carpuject IV 12/30/24 14:18 1 mg
Q3HPRN PRN Administration
severe pain
Ketorolac Tromethamine 15 mg 12/16/24 14:25 12/17/24 09:18
Ketorolac 15 Mg/Ml Injection IV 12/21/24 14:24 15 mg
Q8HPRN PRN Administration
moderate pain
Morphine Sulfate 30 mg 12/15/24 19:50 12/16/24 18:27
Morphine 30 Mg Extended Release Tablet PO 12/29/24 19:49 30 mg
DAILY@1900 RENY Administration
Oxycodone HCl 20 mg 12/15/24 20:00 12/17/24 07:52
Oxycodone 10 Mg Regular Release Tablet PO 12/29/24 19:59 20 mg
QID@0800,1200,1600,2000 RENY Administration
Pantoprazole Sodium 20 mg 12/16/24 15:00 12/17/24 07:52
Pantoprazole 20 Mg Delayed Release Tablet PO 01/13/25 14:59 20 mg
DAILY RENY Administration
Polyethylene Glycol 17 grams 12/15/24 19:50
Polyethylene Glycol Powder 17 Grams Packet PO 01/12/25 19:49
DAILYPRN PRN
constipation
Pregabalin 150 mg 12/15/24 22:00 12/17/24 07:52
Pregabalin 75 Mg Capsule PO 01/12/25 21:59 150 mg
TID RENY Administration
Senna/Docusate Sodium 1 tablet 12/15/24 19:50
Docusate W/Senna (Ro-Colace) Tablet PO 01/12/25 19:49
BIDPRN PRN
constipation
Sodium Chloride 0 flush 12/15/24 20:00 12/16/24 21:18
Sodium Chloride 0.9% (Flush) Syringe IV 01/12/25 19:59 2 flush
PER PROTOCOL RENY Administration
Tizanidine HCl 6 mg 12/15/24 22:00 12/16/24 22:26
Tizanidine 2 Mg Tablet PO 01/12/25 21:59 6 mg
HS RENY Administration
Home Medications
�Medication �Instructions �Recorded
tizanidine 2 mg tablet 6 mg PO HS Muscle Spasms 07/06/23
alprazolam 0.5 mg tablet 0.5 mg PO DAILYPRN PRN anxiety 12/15/24
duloxetine 20 mg capsule,delayed 20 mg PO DAILY Mental 12/15/24
release Health/Anxiety
ibuprofen 125 mg-acetaminophen 250 2 tab PO Q8HPRN PRN mild pain 12/15/24
mg tablet (Advil Dual Action)
morphine 30 mg tablet,extended 30 mg PO DAILY@19 Pain 12/15/24
release
oxycodone 20 mg tablet 20 mg PO DAILY@08,12,16,20 Pain 12/15/24
pregabalin 150 mg capsule 150 mg PO TID Pain 12/15/24
Vital Signs and Labs
-
Vital Signs and Labs:
Vital Signs
Temp Pulse Resp BP Pulse Ox
36.4 C 91 18 134/93 98
12/17/24 07:05 12/17/24 07:05 12/17/24 07:05 12/17/24 07:05 12/17/24 07:05
Lab Results
12/16/24 05:07
12/16/24 05:07
Sodium 141 mmol/L (135-145) 12/16/24 05:07
Potassium 4.4 mmol/L (3.5-5.1) 12/16/24 05:07
BUN 15 mg/dl (7-17) 12/16/24 05:07
Glucose 95 mg/dl (70-99) 12/16/24 05:07
Calcium 8.9 mg/dl (8.4-10.2) 12/16/24 05:07
Medications
-
Medications:
Generic Name Dose Route Start Last Admin
Trade Name Freq PRN Reason Stop Dose Admin
Alprazolam 0.5 mg 12/15/24 19:50
Alprazolam 0.5 Mg Tablet PO 01/12/25 19:49
DAILYPRN PRN
anxiety
Bisacodyl 10 mg 12/15/24 19:50
Bisacodyl 10 Mg Rectal Suppository RECTAL 01/12/25 19:49
[id number] PRN
constipation
Duloxetine HCl 20 mg 12/16/24 08:00 12/17/24 07:52
Duloxetine Delayed Release 20 Mg Capsule PO 01/13/25 07:59 20 mg
DAILY RENY Administration
Enoxaparin Sodium 40 mg 12/15/24 19:50 12/16/24 18:27
Enoxaparin Sodium 40 Mg/0.4 Ml Syringe SC 01/12/25 19:49 40 mg
QPM RENY Administration
Hydromorphone HCl 1 mg 12/16/24 14:19 12/17/24 10:58
Hydromorphone 1 Mg/Ml Carpuject IV 12/30/24 14:18 1 mg
Q3HPRN PRN Administration
severe pain
Ketorolac Tromethamine 15 mg 12/16/24 14:25 12/17/24 09:18
Ketorolac 15 Mg/Ml Injection IV 12/21/24 14:24 15 mg
Q8HPRN PRN Administration
moderate pain
Morphine Sulfate 30 mg 12/15/24 19:50 12/16/24 18:27
Morphine 30 Mg Extended Release Tablet PO 12/29/24 19:49 30 mg
DAILY@1900 RENY Administration
Oxycodone HCl 20 mg 12/15/24 20:00 12/17/24 13:02
Oxycodone 10 Mg Regular Release Tablet PO 12/29/24 19:59 20 mg
QID@0800,1200,1600,2000 RENY Administration
Pantoprazole Sodium 20 mg 12/16/24 15:00 12/17/24 07:52
Pantoprazole 20 Mg Delayed Release Tablet PO 01/13/25 14:59 20 mg
DAILY RENY Administration
Polyethylene Glycol 17 grams 12/15/24 19:50
Polyethylene Glycol Powder 17 Grams Packet PO 01/12/25 19:49
DAILYPRN PRN
constipation
Pregabalin 150 mg 12/15/24 22:00 12/17/24 07:52
Pregabalin 75 Mg Capsule PO 01/12/25 21:59 150 mg
TID RENY Administration
Senna/Docusate Sodium 1 tablet 12/15/24 19:50
Docusate W/Senna (Ro-Colace) Tablet PO 01/12/25 19:49
BIDPRN PRN
constipation
Sodium Chloride 0 flush 12/15/24 20:00 12/16/24 21:18
Sodium Chloride 0.9% (Flush) Syringe IV 01/12/25 19:59 2 flush
PER PROTOCOL RENY Administration
Tizanidine HCl 6 mg 12/15/24 22:00 12/16/24 22:26
Tizanidine 2 Mg Tablet PO 01/12/25 21:59 6 mg
HS RENY Administration
Home Medications
-
Home Medications
tizanidine 2 mg tablet 6 mg PO HS Muscle Spasms 07/06/23
alprazolam 0.5 mg tablet 0.5 mg PO DAILYPRN PRN anxiety 12/15/24
duloxetine 20 mg capsule,delayed release 20 mg PO DAILY Mental Health/Anxiety 12/15/24
ibuprofen 125 mg-acetaminophen 250 mg tablet (Advil Dual Action) 2 tab PO Q8HPRN PRN mild pain 12/15/24
morphine 30 mg tablet,extended release 30 mg PO DAILY@19 Pain 12/15/24
oxycodone 20 mg tablet 20 mg PO DAILY@08,12,16,20 Pain 12/15/24
pregabalin 150 mg capsule 150 mg PO TID Pain 12/15/24
[2024-12-17 14:26] LABS: Erythrocyte Sed Rate 2 mm/hour (0-20)
[2024-12-17 14:30] LABS: Iron 124 ug/dl (37-170); Magnesium 2.1 mg/dl (1.6-2.3)
[2024-12-17 14:33] LABS: C-Reactive Protein < 5.00 mg/L (0.0-10.00)
[2024-12-17 14:37] LABS: IgA 167 mg/dl (70-400)
[2024-12-17 14:38] LABS: Percent Saturation 30 % (20-50); Total Iron Binding Capacity 405 ug/dl (265-497)
[2024-12-17 15:03] VITALS: BP 159/79
[2024-12-17 15:04] LABS: TSH 0.39 uIU/ml (0.47-4.68)
[2024-12-17 15:08] LABS: Ferritin 20.8 ng/ml (6.24-137)
[2024-12-17 15:13] LABS: Creatine Phosphokinase 34 U/L (30-135); Uric Acid 4.8 mg/dl (2.5-6.2)
--- NOTE | 2024-12-17 15:21 | W.PN.HOSP.TC ---
Today's Communication/Plan
-
Neurologic workup including MRI of the brain and spine
Attempt to wean off IV hydromorphone
Monitor BP trend
Assessment / Plan
Assessment / Plan
Impression:
Chronic pain syndrome with polyneuropathy
Opiate dependency.
Metabolic syndrome (obesity, prediabetes)
DJD.
Tobacco use disorder
Plan:*
Presentation does not fit into contemplated RSD or CIDP.
Outpatient punch biopsy not consistent with demyelination pathology
Additional workup including brain and MRI imaging
Consider spinal fluid sampling if any abnormalities on MRI.
Additional serology ordered
No further corticosteroids for now
Attempt to wean off IV hydromorphone well continue preadmission opiate/LESLYE regimen.
Anticipated Discharge: 24 - 48 hours
Subjective/Interval History
-
Date of Service: December 17, 2024
Objective Data
-
Vital Signs:
Vital Signs
Temp Pulse Resp BP Pulse Ox
98.0 F 73 18 159/79 98
12/17/24 15:03 12/17/24 15:03 12/17/24 15:03 12/17/24 15:03 12/17/24 15:03
I&O
12/16/24 12/17/24 12/18/24
06:59 06:59 06:59
Intake Total 480 / 480 1320 / 1320
Balance 480 / 480 1320 / 1320
Physical Exam
-
General: Well Developed, Well Nourished and No Apparent Distress
HEENT: Normocephalic and Atraumatic
Respiratory: Clear to Auscultation; Negative Wheezes or Rhonchi
Cardiac: Regular Rhythm and S1/S2; Negative Murmur
GI: Soft, Nontender, Nondistended and Normal Bowel Sounds
Musculoskeletal: No Clubbing, No Cyanosis and No Edema
Skin: Warm
Neuro: Awake
Psych: Calm
[2024-12-17 15:23] LABS: Vitamin B12 389 pg/ml (239-931)
[2024-12-17] MEDS: TYLENOL 650 MG PO (18:17)
[2024-12-17] MEDS: LOVENOX 40 MG SC (18:18)
[2024-12-17] MEDS: MS CONTIN (EXTENDED RELEASE) 30 MG PO (18:18)
[2024-12-17 19:29] LABS: Hepatitis C Antibody Negative (Negative)
[2024-12-17] MEDS: ZANAFLEX 6 MG PO (21:44)
[2024-12-17 23:31] VITALS: BP 147/90
[2024-12-18 07:05] VITALS: BP 107/73
[2024-12-18] MEDS: ROXICODONE 20 MG PO ×2 (08:36→12:05)
[2024-12-18] MEDS: LYRICA 150 MG PO (08:37)
[2024-12-18] MEDS: CYMBALTA DELAYED RELEASE 20 MG PO (08:37)
[2024-12-18] MEDS: PROTONIX 20 MG PO (08:37)
--- NOTE | 2024-12-18 09:32 | W.PN.NEURO.1 ---
Today's Communication / Plan
-
.
Subjective/Objective
Subjective Data
Date of Service: December 18, 2024
Neurology follow-up note.
Ms. Arcos endorses a left burning pain. She had an uneventful night.
Pain scale last evening�8�9.
Labs: Hemoglobin HbA1c�5.8, normal CK, ESR, CRP, ferritin 20.8, B12�389, negative hepatitis C.
Brain and C-spine MRI are pending.
PMH: CRPS, Glucose intolerance, chronic opioid use, ZIA, BMI 30, nephrolithiasis, LS DJD
PSH: left femoral ORIF
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
FH: Father from metastatic lung cancer at 39, MGF�coronary artery disease
All:NKDA
ROS: Constitutional: Negative. Negative for chills, fever and unexpected weight change.
HENT: Positive for intermittent tinnitus on the left
Eyes: Negative. Negative for photophobia, pain and visual disturbance.
Respiratory: Negative for cough, choking and shortness of breath.
Cardiovascular: Negative for chest pain, palpitations and leg swelling.
Gastrointestinal: Negative for abdominal pain and vomiting.
Endocrine: Negative. Negative for cold intolerance.
Genitourinary: Negative for dysuria, flank pain and urgency.
Musculoskeletal: Positive for leg pain right elbow pain, muscle cramps
Skin: Positive for hand rash, pruritus
Allergic/Immunologic: Negative. Negative for immunocompromised state.
Neurological: Positive for left arm and leg burning pain, imbalance, intermittent headaches
General: Well developed. In no acute distress.
Cardio: Regular rate and rhythm without murmur. Extremities are without cyanosis or edema.
Neuro:
Mental Status: Alert, oriented to person, place, and date. Normal attention and recall. Good fund of knowledge. Follows complex requests across the midline. Comprehension, naming, and repetition intact. Labile mood
Cranial Nerves: Pupils are equally round and reactive to light. EOMs full. Visual esposito full to confrontation. No ptosis. No nystagmus. V1-V3 intact to light touch and pinprick bilaterally, symmetric. Face symmetric. Normal hearing AU. The
palate elevated well. SCMs and traps 5/5. Tongue midline. No dysarthria.
Motor: Normal bulk and tone. No pronator or arm drift. Strength 5/5 throughout. No clonus.
Reflexes: 3+ throughout the upper extremities and knees. 4/2 in AJs. Positive Yonny bilaterally plantar responses flexor bilaterally.
Sensory: Reduced vibration in the toes
Coordination: No dysmetria or tremor.
Gait: deferred
Assessment and Plan:
I. SFN (small fiber polyneuropathy) Likely etiology-metabolic.
II. ZIA
III. Pathological hyperreflexia
IV. LS spine DJD
-Polyneuropathy/myelopathy blood work
-Please obtain a copy of NCS/EMG report from [facility] Pain management
-Brain MRI wo zia/C spine MRI wo zia
-PT
-DVT prophylaxis
I personally reviewed all radiology and labs along with past medical records pertinent to current medical problems. Total time spent in patient care is 36 minutes.
Thank you for allowing us to participate in the care of this patient. We will continue to follow. Please do not hesitate to contact us with any questions or concerns.
Objective Data
Vital Signs
Temp Pulse Resp BP Pulse Ox
36.9 C 63 18 107/73 99
12/18/24 07:05 12/18/24 07:05 12/18/24 07:05 12/18/24 07:05 12/18/24 07:05
Lab Results
12/16/24 05:07
12/16/24 05:07
Sodium 141 mmol/L (135-145) 12/16/24 05:07
Potassium 4.4 mmol/L (3.5-5.1) 12/16/24 05:07
BUN 15 mg/dl (7-17) 12/16/24 05:07
Glucose 95 mg/dl (70-99) 12/16/24 05:07
Calcium 8.9 mg/dl (8.4-10.2) 12/16/24 05:07
Vitamin B12 389 pg/ml (239-931) 12/17/24 13:53
Patient Allergies
No Known Allergies Allergy (Verified 12/15/24 11:19)
[2024-12-18] MEDS: DILAUDID 1 MG IV (10:03)
[2024-12-18] MEDS: XANAX 0.5 MG PO (10:40)
--- NOTE | 2024-12-18 12:56 | PTCARENOTE ---
patient reports left lower leg pain from knee down to toes is the worst compared to all other body pain. pain decreased to 7/10 after PRN Dilaudid dose. tolerating diet, vss, will continue to monitor.
--- NOTE | 2024-12-18 13:16 | W.DS.TRANS ---
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
-
Discharge Instructions:
Discharge Diagnosis/Procedures Chronic pain
Diet Regular
Instructions:
Stand-Alone Forms:
Changes to Home Medications: No
Discharge Medications:
DC Medications w/original date entered in [facility]
tizanidine 2 mg tablet 6 mg PO HS Muscle Spasms 07/06/23
alprazolam 0.5 mg tablet 0.5 mg PO DAILYPRN PRN anxiety 12/15/24
duloxetine 20 mg capsule,delayed release 20 mg PO DAILY Mental Health/Anxiety 12/15/24
ibuprofen 125 mg-acetaminophen 250 mg tablet (Advil Dual Action) 2 tab PO Q8HPRN PRN mild pain 12/15/24
morphine 30 mg tablet,extended release 30 mg PO DAILY@19 Pain 12/15/24
oxycodone 20 mg tablet 20 mg PO DAILY@08,12,16,20 Pain 12/15/24
pregabalin 150 mg capsule 150 mg PO TID Pain 12/15/24
Home Medication Changes
Pending Results: No
[2024-12-18] MEDS: TORADOL 15 MG IV (13:49)
[2024-12-18 14:37] LABS: HIV Combo Negative (Negative)
--- NOTE | 2024-12-18 14:40 | PTCARENOTE ---
pt was premedicated with PRN Xanax prior to MRI.
[2024-12-18 15:16] VITALS: BP 134/81
--- NOTE | 2024-12-18 15:43 | CM ---
MD entered order for discharge..
Offered VN he declined need.
Her son Uri will drive her home.
PLAN Home non needs
[2024-12-19 19:35] LABS: Transferrin 323 mg/dL (200-360)
[2024-12-20 00:21] LABS: Endomysial IgA Antibody Titer <1:10 (<1:10)
[2024-12-20 01:19] LABS: tTG IgA Antibody <1.02 FLU (0.00-4.99)
[2024-12-21 17:33] LABS: Vitamin B1, Whole Blood 214 nmol/L (70-180)
== END 2024-12-18 16:05 | disposition home or self-care (01) | DRG 74 ==
LOC: 3 WEST ACU 19:50
PROVIDERS: Clinical Nurse Specialist Family Health; Physician Assistant; ADMITTING PHYSICIAN Internal Medicine; ATTENDING PHYSICIAN Internal Medicine; CONSULT PHYSICIAN Psychiatry & Neurology Neurology; EMERGENCY PHYSICIAN Emergency Medicine; FAMILY PHYSICIAN Physician Assistant Medical
DX: G90.522 Complex regional pain syndrome I of left lower limb (principal); F11.20 Opioid dependence, uncomplicated; M47.16 Other spondylosis with myelopathy, lumbar region; G89.4 Chronic pain syndrome; G90.512 Complex regional pain syndrome I of left upper limb; G62.9 Polyneuropathy, unspecified; E66.09 Other obesity due to excess calories; E88.810 Metabolic syndrome; Z68.30 Body mass index [BMI] 30.0-30.9, adult; F41.0 Panic disorder [episodic paroxysmal anxiety]; Z87.442 Personal history of urinary calculi; G43.909 Migraine, unspecified, not intractable, without status migrainosus; Z82.49 Family history of ischemic heart disease and other diseases of the circulatory system; Z80.1 Family history of malignant neoplasm of trachea, bronchus and lung; Z79.899 Other long term (current) drug therapy; F17.210 Nicotine dependence, cigarettes, uncomplicated; E74.39 Other disorders of intestinal carbohydrate absorption; G25.3 Myoclonus; L29.9 Pruritus, unspecified
CPT/HCPCS: 70551; 72141; 80053; 81003; 81015; 82550; 82607; 82728; 82784; 83036; 83516; 83521; 83540; 83550; 83735; 84155; 84165; 84207; 84425; 84443; 84466; 84550; 85025; 85652; 86140; 86231; 86235; 86334; 86803; 87389; 96361; 96374; 96375; 96376; 97163; 97167; 99285; 99406

== ENCOUNTER 2025-04-12 14:34 | Inpatient (IN) | payer OTHER, SELFPAY ==
[2025-04-09 19:37] VITALS: BP 141/103
[2025-04-09 19:51] LABS: Hematocrit 44.7 % (37.0-47.0); Hemoglobin 15.1 g/dL (12.0-16.0); Mean Corp Hgb Conc. 33.8 g/dL (33.0-37.0); Mean Corpuscular Volume 89.2 fL (81.0-99.0); Nucleated Red Blood Cells % 0 %; Platelet Count 349 10^3/uL (130-400); Red Cell Dist. Width 12.7 % (11.5-14.5)
--- NOTE | 2025-04-09 20:09 | ED.GENMED ---
History of Present Illness
General
Chief Complaint: Generalized Pain
Source: patient
Exam Limitations: none
Time Seen by Provider: 04/09/25 20:07
Nursing documentation reviewed up to this point in time: agreed with
History of Present Illness
History of Present Illness:
The patient is a pleasant 44-year-old female with a past medical history of chronic pain syndrome which the patient reports is due to small fiber polyneuropathy, who reports diffuse severe pain in her arms and legs. Patient describes it as a
burning sensation, as if she is being ' burned alive'. She reports that she had a similar flare last December and caused her to need to be admitted. Patient reports despite taking all of her chronic pain medications, she is unable to function due to
severe pain. She reports she called her pain management doctor and was told to come to the ED for IV pain medications. Patient reports that she generally requires 2 days of IV pain medication and then the flare passes. She denies fever, nausea,
vomiting and diarrhea. She does not know what is causing the flares. She reports she has an appointment the end of April with neurology to discuss antibody therapy
Past History
Past History
ED Past Medical History: Psychiatric (Anxiety, Panic disorder) and Other (Migraine headaches, Renal calculus, Femur fracture, Complex regional pain syndrome)
ED Past Surgical History: Orthopedic (ORIF left femur fx age 9)
Social History
Tobacco: Smoker
Alcohol: None
Drug: None
Personal:
Living: with family
Employment: Employed
Family History
Family History: Other (No family history of kidney stones)
Review of Systems
Review of Systems
Allergies reviewed?: Yes
All Other Systems: ROS reviewed and negative except as documented in HPI and ROS
Constitutional: Reports fatigue
EENT: Reports no symptoms
Respiratory: Reports no symptoms
Cardiac: Reports no symptoms
ABD/GI: Reports anorexia
: Reports no symptoms
Musculoskeletal: Reports joint pain and muscle stiffness
Skin: Reports no symptoms
Neurological: Reports no symptoms
Endocrine: Reports no symptoms
Hematologic/Lymphatic: Reports no symptoms
Psychiatric: Reports no symptoms
Phy Exam
Physical Exam
Physical Exam:
Physical Exam
General: Patient appears uncomfortable but nontoxic
Neck: supple. no meningeal signs. normal psoterior pharynx
Heart: s1/s2 regular rate and rhythm, no murmur. equal radial pulses.
Lungs: no acute respiratory distress. clear bilaterally
Abdomen: normal bowel sounds. not tender. no CVAT
Neuro: alert and oriented. no focal neurological deficits
Skin: Dry chronically thickened skin left hand
Psychiatric: well kept. interactive and cooperative
Extremities: no edema. no calf tenderness. negative homans. good distal pulses. Strong pulses in bilateral extremities
Course
Orders/Labs/Results
Orders:
Orders
04/09/25 19:43
CMP [Comprehensive Metabolic Panel] Urgent
Complete Blood Count/With Diff Urgent
HCG, Serum Qualitative Screen Urgent
Comment: ADD ON
04/09/25 20:48
0.9% Sodium Chloride 500 ml [Nss] 500 ml IV BOLUS
04/09/25 20:49
HYDROmorphone [Dilaudid] 1 mg IV NOW STA
04/09/25 20:50
Test Result ONCE
04/09/25 21:59
HYDROmorphone [Dilaudid] 1 mg IV NOW STA
Abnormal Lab Results
04/09/25
19:43
WBC 12.0 H 10^3/uL
(4.8-10.8)
Abs Immat Gran (auto) 0.1 H 10^3/uL
(0-0.05)
Absolute Neuts (auto) 7.7 H 10^3/uL
(1.4-6.5)
Absolute Lymphs (auto) 3.5 H 10^3/uL
(1.2-3.4)
BUN 19 H mg/dl
(7-17)
Glucose 143 H mg/dl
(70-99)
04/09/25 19:43
04/09/25 19:43
Vital Signs
Initial and Last Documented VS:
Initial Vital Signs
Temp Pulse Resp BP Pulse Ox
98.2 F 110 20 141/103 99
04/09/25 19:37 04/09/25 19:37 04/09/25 19:37 04/09/25 19:37 04/09/25 19:37
Last Documented Vital Signs
Temp Pulse Resp BP Pulse Ox
98.2 F 110 20 141/103 99
04/09/25 19:37 04/09/25 19:37 04/09/25 19:37 04/09/25 19:37 04/09/25 20:09
MDM/Problems Addressed
Differential Diagnosis Includes:
Acute on chronic acute hypokalemia, acute dehydration, rhabdomyolysis
MDM/Problems Addressed:
Patient presents with acute pain in arms and legs
Chronic conditions affecting care:
Chronic pain syndrome
Acute Exacerbation and/or Progression of Chronic Illness:
Patient likely has acute on chronic pain syndrome
*Pulse Oximetry
SaO2: 99
Oxygen Mode of Delivery: Room air
Patient hypoxic: no
Comment: 99% on room air
*EKG
Interpreted by ED Provider?: NA
*Game Warden Interpretation
Rate: normal
Interpretation: normal
Rhythm: sinus
*Critical Care Note
Total Time (30-74mins, 75-104mins- exclusive of procedures): Not Applicable
Data Reviewed
Review of Other/Old Records Reveals: Discharge Summary (Discharge summary reviewed from December 2024 when patient was admitted for acute on chronic pain syndrome)
Source: patient
Patient Management
Social determinants of health affecting care: Living situation and Strong social support
Discussion with other providers: Hospitalist
ED Attending Note
-
Portions of this chart may have been created with voice recognition software.� Occasional wrong word or��sound alike� substitutions may have occurred due to the inherent limitations of voice recognition software.
Discharge Plan
Departure
Patient Disposition: Admit
Date of Disposition: 04/09/25
Time of Disposition: 21:58
Admit to: Med/Surg
Presentation/result/management discussed w/ accepting MD/DO: Hospitalist
Patient with high blood pressure during this ER visit?: Yes
Condition: Good
Covid-19: Not Applicable
Discharge Problem:
Complex regional pain syndrome, Intractable body pain
Prescriptions:
No Action
tizanidine 2 mg Tablet
6 mg PO HS
morphine 30 mg Tablet Extended Release
30 mg PO DAILY@19
duloxetine 20 mg Capsule,Delayed Release(Dr/Ec)
20 mg PO DAILY
pregabalin 150 mg Capsule
150 mg PO TID
ibuprofen-acetaminophen [Advil Dual Action] 125-250 mg Tablet
2 tab PO Q8HPRN PRN (Reason: mild pain)
oxycodone 20 mg tablet
20 mg PO DAILY@08,12,16,20
Patient Comments:
12/15/24: last filled 11/24/24 for 120 tabs over 30 days
alprazolam 0.5 mg Tablet
0.5 mg PO DAILYPRN PRN (Reason: anxiety)
lisinopril 10 mg Tablet
10 mg PO DAILY
Referrals:
[facility], [Other]
UNKNOWN - PT DOES,NOT KNOW [Family Provider]
Interventions
Interventions:
*Risk Screen - Suicide Last Done: 04/09/25 20:54
*General Assessment Last Done: 04/09/25 19:37
*Neglect/Abuse Screening Last Done: 04/09/25 20:54
*ED- Fall Risk Assessment Last Done: 04/09/25 20:54
*ED COVID-19 Vaccine History Last Done: 04/09/25 20:54
Discharge Date and Time
Print Language: SETSWANA
[2025-04-09 20:16] LABS: ALT (SGPT) 21 U/L (0-35); AST (SGOT) 18 U/L (14-36); Albumin 4.4 g/dl (3.5-5.0); Alkaline Phosphatase 63 U/L (38-126); Blood Urea Nitrogen 19 mg/dl (7-17); Calcium 9.7 mg/dl (8.4-10.2); Chloride 106 mmol/L (98-107); Glucose 143 mg/dl (70-99); Potassium 4.5 mmol/L (3.5-5.1); Sodium 139 mmol/L (135-145); Total Protein 7.1 g/dl (6.3-8.2); eGFR > 60.00
[2025-04-09 20:25] LABS: Carbon Dioxide 23 mmol/L (22-30)
[2025-04-09] MEDS: DILAUDID 1 MG IV ×2 (20:51→22:01)
[2025-04-09] MEDS: NSS 500 IV (20:52)
[2025-04-09 20:54] VITALS: BMI 28.9
[2025-04-09 21:14] LABS: HCG, Serum Qualitative Screen Negative
--- NOTE | 2025-04-09 22:16 | HPS.HSE ---
Addendum entered and electronically signed by Dutch Saab DO 04/09/25 23:27:
Patient seen and examined independently. Agree with findings and plan as set forth by TANG Toussaint.
Patient is a 44y F with PMH significant for chronic pain syndrome and chronic opioid dependence who presents to ED complaining of increased pain. Patient reports increased pain 'all over' - but mostly along the left side - since Saturday. She
contacted her Pain Management physician who reportedly advised her to present to the ED if her pain could not be controlled with her home regimen. She had a recent increase in her MS Contin dose from 30mg daily to 30mg BID. Pateint was admitted
here in December with similar episode. She has received two doses (1mg each) of Dilaudid in the ED with little change in her symptoms.
Ass:
Acute on Chronic Pain
Chronic Opioid Dependence
Small Fiber Polyneuropathy / CRPS
Anxiety / Depression
Benign Hypertension
Migraines
Plan:
Observe overnight for further evaluation and symptom management.
Resume usual home regimen without changes.
Seems unlikely that additional opioid medications will be of much benefit here.
Consider possibility of chronic opioid induced hyperalgesia.
Follow-up with Pain Management after discharge for termite control servicer plan.
Original Note:
Family Physician
-
Family Physician: NOT KNOW UNKNOWN - PT DOES
Chief Complaint
-
Exacerbation with complex regional pain syndrome with burning of entire body and left-sided pain
History of Present Illness
44-year-old female states that she has had exacerbation of her complex regional pain syndrome that she has had for 2 years with unknown cause exacerbated over the past 5 days. She reports she had an increase of her morphine from 30 mg once a day to
twice daily on 03/16/[address] Fajardo from [facility] pain management in addition to her oxycodone 20 mg 4 times daily, tizanidine 6 mg at bedtime, Lyrica 150 mg 3 times daily, Cymbalta 20 mg daily and taking ibuprofen/acetaminophen in between but
still is having left-sided burning pain including in her abdomen. She tells me she has received IV ketamine by [facility] pain management which they no longer do so she has ketamine Max's on their way from a doctor in [place] she was told to
contact by [facility] pain management, but states the IV ketamine did not help her. She reports I require 3 days of hospital IV Dilaudid to get control over my pain. She denies fever, chills, chest pain, palpitations, cough, shortness of breath,
nausea, vomiting, diarrhea, urinary symptoms. She reports the pain is so bad she is having difficulty eating however she is able to take her current pain medication she states she has not run out. She reports she notified cell he is from pain
management she was coming to the hospital today as she has a pain management contract with them. Her last menstrual period was yesterday she is 1 para 1.
She has a past medical history, complex regional pain syndrome, polyneuropathy, migraine headaches, anxiety/panic disorder, renal calculi, femur fracture status post ORIF age 9, active smoker
Medical History
Past Medical History
Past Medical History: Reports Other
Additional Past Medical History:
chronic regional pain syndrome left arm, left leg x 2 years
anxiety
panic disorder
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
migraines
renal calculi
spinal degenerative disc disease
Active smoker
Past Surgical History: Reports None
Social History
Tobacco: Smoker (1/4 pack a day)
Alcohol: None
Drug: None
Personal:
Living: With Family
Employment: Not Employed
Family History
Family History: Early CAD (Maternal grandfather CAD/CABG early 40s) and Other (Father lung cancer mets to brain age 39, mother living hypertension)
Allergies / Home Medications
Allergies reflects when Allergies were last updated in [facility].
Home Medications with original date entered in [facility]
Allergy/Medication List:
Allergies
Allergy/AdvReac Type Severity Reaction Status Date / Time
No Known Allergies Allergy Verified 04/09/25 19:37
Home Medications
tizanidine 2 mg tablet 6 mg PO HS Muscle Spasms 07/06/23
alprazolam 0.5 mg tablet 0.5 mg PO DAILYPRN PRN anxiety 12/15/24
duloxetine 20 mg capsule,delayed release 20 mg PO DAILY Mental Health/Anxiety 12/15/24
ibuprofen 125 mg-acetaminophen 250 mg tablet (Advil Dual Action) 2 tab PO Q8HPRN PRN mild pain 12/15/24
morphine 30 mg tablet,extended release 30 mg PO BID@07,19 Pain 12/15/24
oxycodone 20 mg tablet 20 mg PO DAILY@08,12,16,20 Pain 12/15/24
pregabalin 150 mg capsule 150 mg PO TID Pain 12/15/24
lisinopril 10 mg tablet 10 mg PO DAILY 04/09/25
Review of Systems
-
History Source: Patient
A 12 point ROS was completed and negative except as noted: Yes
Constitutional: Denies Fever or Chills
EENT: Denies Sore Throat or Runny Nose
Respiratory: Denies Cough or Trouble Breathing
Cardiac: Denies Chest Pain, Diaphoresis, Palpitations or Syncope
Abdomen/GI: Reports Abdominal Pain (Generalized left-sided) and Other (Decreased appetite due to pain); Denies Nausea, Vomiting, Diarrhea, Constipated or Bloody Stools
: Denies Dysuria, Frequency, Flank Pain, Incontinence, Difficulty Voiding or Urgency
Musculoskeletal: Reports Other (Entire body burning per patient)
Skin: Denies Itching or Rash
Neurological: Denies Dizzy, Headache or Weakness
Endocrine: Reports No Symptoms
Hematologic/Lymphatic: Reports No Symptoms
Psych: Reports Calm
Physical Exam
Vital Signs
Vital Signs
Temp Pulse Resp BP Pulse Ox
98.2 F 110 20 141/103 99
04/09/25 19:37 04/09/25 19:37 04/09/25 19:37 04/09/25 19:37 04/09/25 20:09
Physical Exam
General: Comfortable and Conversant; No Fever, Chills or Sweats
HEENT: NormoCephalic, Anicteric, Moist mucous membranes, PERRLA, [place] Conjunctivae and No Ptosis
Respiratory: Clear; No Wheezes, Rales or Rhonchi
Cardiac: S1/S2 and Tachycardia (Sinus); No Murmur, Rub, Gallop or Peripheral Edema
Breast: Deferred by me
GI: Soft, Non Tender, Non Distended, Normal Bowel Sounds and No Hepatosplenomegaly
Rectal: Deferred by Provider
Genito-urinary: Deferred by me
Musculoskeletal: No Clubbing, No Cyanosis and No Edema
Skin: Warm and Dry; No Rash
Neuro: AO x 3, No Motor Deficits, Nonfocal/grossly intact, Cranial Nerves Intact, No Sensory Deficits and Other (Texting on phone without difficulty); No Slurred Speech, Facial Droop or Tremors
Psych: Calm
Laboratory Results
-
04/09/25 19:43
04/09/25 19:43
Laboratory Results
Total Bilirubin 1.0 mg/dl (0.2-1.3) 04/09/25 19:43
AST 18 U/L (14-36) 04/09/25 19:43
ALT 21 U/L (0-35) 04/09/25 19:43
Alkaline Phosphatase 63 U/L (38-126) 04/09/25 19:43
Data Reviewed
-
Lab Data: Labs Reviewed by me
Impression/Plan
-
Impression/plan:
Observation MedSurg
#Exacerbation polyneuropathy/complex regional pain syndrome on chronic oral opiates
Patient on morphine 30 mg BID at 1900(review PDMP Rx 03/16/2025 60 tabs-this was just increased from daily to twice daily on 03/16/[address] Fajardo [facility] pain management), oxycodone 20 mg 08, 12, 16, 20(review of PDMP Rx for 120 tabs on 03/16/2025)
-Continue tizanidine 6 mg at bedtime muscle spasms, Lyrica 150 mg p.o. 3 times daily
-IV NSS given in ER 1 L
- IV Dilaudid 2 mg total received in ER
-Iv dilaudid prn
- Resume patient's medication regimen now MS Contin 30 mg, oxycodone 20 mg, Lyrica 150 mg, tizanidine 6 mg this evening
-I recommended patient follow-up and have discussion with her doctor on her scheduled appointment on April 13 regarding different pain management possible consideration of Suboxone versus all of the above meds that are not working including IV
ketamine she states she has ketamine max on the way from a pharmacy/physician in [facility]
#Anxiety/panic disorder
-Continue duloxetine 20 mg daily
- Continue alprazolam 0.5 mg daily as needed
#HTN
BP 141/103
-Continue lisinopril 10 mg daily
#Migraine headaches
#Active smoker
Cessation advised
# Renal calculi
#Femur fracture status post ORIF age 9
DVT prophylaxis
SCDs
Full code
[2025-04-09] MEDS: LYRICA 150 MG PO (23:29)
[2025-04-09] MEDS: ZANAFLEX 6 MG PO (23:29)
[2025-04-09] MEDS: ROXICODONE 20 MG PO (23:29)
[2025-04-09] MEDS: MS CONTIN (EXTENDED RELEASE) 30 MG PO (23:29)
[2025-04-09 23:34] VITALS: BP 133/89
[2025-04-10] VITALS: BP 137/102
[2025-04-10 00:30] VITALS: BP 127/80
[2025-04-10] MEDS: DILAUDID 1 MG IV ×5 (02:00→22:11)
[2025-04-10] MEDS: MOTRIN 400 MG PO (05:18)
[2025-04-10 06:00] VITALS: BMI 30.6
[2025-04-10 07:00] VITALS: BP 153/109
--- NOTE | 2025-04-10 07:28 | W.PN.HOSP.TC ---
Today's Communication/Plan
-
D dimer pending result
Assessment / Plan
Assessment / Plan
44 yrs old F with h/o Acute on Chronic Pain, Chronic Opioid Dependence, Small Fiber Polyneuropathy / CRPS, Anxiety / Depression, Migraines presented with left side hip pain.
# chronic regional pain syndrome:
Patient experiences this symptoms always which is relieved with opioid medications.
She c/o non specified chest pain, with given
WELL score for pulmonary emboli= 1.5 (Heart rate = 110) when she got admitted and by given h/o non specified chest pain D- dimer order placed to rule out Pulmonary Emboli
# Chronic Opioid Dependence:
morphine 30 mg Tablet Extended Release patient was taking at home.
#Anxiety / Depression:
-Continue duloxetine 20 mg daily
- Continue alprazolam 0.5 mg daily as needed
#Benign Hypertension:
BP 149/90
-Continue lisinopril 10 mg daily
DVT prophylaxis: SCD
Anticipated Discharge: 24 - 48 hours
Subjective/Interval History
-
Date of Service: April 10, 2025
Patient is experiencing left side hip pain which is chronically going on, and she is feeling all over body burning down and crying all over the conversation.
She specifically mentions she started to have this symptoms when she stopped taking opioid medications. '
Objective Data
-
Labs:
04/09/25 19:43
04/09/25 19:43
Laboratory Results
Total Bilirubin 1.0 mg/dl (0.2-1.3) 04/09/25 19:43
AST 18 U/L (14-36) 04/09/25 19:43
ALT 21 U/L (0-35) 04/09/25 19:43
Alkaline Phosphatase 63 U/L (38-126) 04/09/25 19:43
Laboratory Results
04/09/25
19:43
WBC 12.0 H
Hgb 15.1
Hct 44.7
Plt Count 349
Sodium 139
Potassium 4.5
Chloride 106
Carbon Dioxide 23
BUN 19 H
Creatinine 1.0
Glucose 143 H
Calcium 9.7
Total Bilirubin 1.0
AST 18
ALT 21
Alkaline Phosphatase 63
Vital Signs:
Vital Signs
Temp Pulse Resp BP Pulse Ox
97.4 F 60 18 127/80 99
04/10/25 00:30 04/10/25 00:30 04/10/25 00:30 04/10/25 00:30 04/10/25 00:30
Review of Systems
-
History Source: Patient
Constitutional: Reports Fatigue and Sleep Disturbance
Respiratory: Reports No Symptoms
Cardiac: Reports Chest Pain (non specific chest pain, pricking in nature radiating to the back of the shoulder.)
Abdomen/GI: Reports No Symptoms
Genitourinary: Reports No Symptoms
Musculoskeletal: Reports No Symptoms
Skin: Reports Nail Changes (left side) and Other (left side back pain which is radiating to the back of the shoulder. )
Neuro: Reports No Symptoms
Endocrine: Reports No Symptoms
Hematologic / Lymphatic: Reports No Symptoms
Allergy / Immunology: Reports No Symptoms
Psych: Reports Sad and Other (crying)
Physical Exam
-
Respiratory: Clear to Auscultation
Cardiac: Regular Rhythm and S1/S2
GI: Soft, Nontender and Nondistended
Genito-urinary: No Costovertebral Tender
Musculoskeletal: No Clubbing
Skin: Warm and Other (left side nail fissures were present)
Neuro: AO x 3
Hematologic / Lymphatic: No Lymphadenopathy
Psych: Calm
[2025-04-10] MEDS: CYMBALTA DELAYED RELEASE 20 MG PO (08:50)
[2025-04-10] MEDS: ROXICODONE 20 MG PO ×4 (08:50→20:53)
[2025-04-10] MEDS: LYRICA 150 MG PO ×3 (08:51→20:53)
[2025-04-10] MEDS: ZESTRIL 10 MG PO (08:51)
[2025-04-10] MEDS: MS CONTIN (EXTENDED RELEASE) 30 MG PO ×2 (08:57→20:33)
--- NOTE | 2025-04-10 13:57 | CM ---
Addendum entered by Gianna Marc 04/10/25 14:01:
OBS status - form explained & signed. In chart
Original Note:
Patient seen at bedside
IA completed
PMH significant for chronic pain syndrome and chronic opioid dependence
Lives with , children & father in law in [place] [facility], [address]
PLOF: Independent, uses a walker at times she reported
DME: Walker, cane, shower chair
Denies VN/Rehab
states has pain mgmt appt on Tu
PCP: Roman Delgado
Pharmacy: [facility] [place]
PLAN: home, no needs when stable
[2025-04-10 15:00] VITALS: BP 149/90
--- NOTE | 2025-04-10 15:00 | W.PN.UPDATE ---
Update Note
Progress Note Update
Seen and examined by me independently in collaboration with the medical technologist.
Lab data and imaging data reviewed.
Addendum as below :
Patient presents with generalized but predominantly left-sided pain exacerbation. She has chronic regional pain syndrome and gets intermittent exacerbation. No obvious trigger but she has been debilitated with this pain and was not being able out
of bed for the last few days. She is on combination of narcotic, neuropathic pain medicine, muscle relaxant. She follows with local pain specialist has had a ketamine infusions as well.
She has a left hand skin changes with superficial small ulcerations. Denies any prior atrophic or bony changes. She does have chronic left hip pain.
She also complains of predominantly left-sided chest pain/rib pain and it hurts to take a breath. No history of PE or DVT.
Not sure if chest symptom is part of her chronic regional pain syndrome which may as well be a bit evaluate further with a rib view x-ray and check a D-dimer if elevated obtain a CT PE study.
Discussed with who was present during the rounds.
Total time spent on today's encounter was 52 minutes which included time spent in counseling the patient/family regarding diagnosis and treatment plan as listed above, goals of care, and symptom management. Case was discussed with nursing staff,
specialists, and care coordinators/case management. All labs and imaging personally reviewed by me. Remainder the time spent in detailed review of previous records, lab data, imaging, and other medical provider documentation.
[2025-04-10 16:29] LABS: D-Dimer < 0.27 ug/mlFEU (0.00-0.50)
[2025-04-10] MEDS: XANAX 0.5 MG PO (20:53)
[2025-04-10] MEDS: ZANAFLEX 6 MG PO (20:53)
[2025-04-10 23:10] VITALS: BP 138/85
[2025-04-11] MEDS: DILAUDID 1 MG IV ×5 (02:11→22:53)
[2025-04-11] MEDS: MOTRIN 400 MG PO ×2 (05:26→14:06)
[2025-04-11] MEDS: XANAX 0.5 MG PO ×2 (05:27→22:53)
[2025-04-11 06:44] LABS: Hematocrit 40.7 % (37.0-47.0); Hemoglobin 13.2 g/dL (12.0-16.0); Mean Corp Hgb Conc. 32.4 g/dL (33.0-37.0); Mean Corpuscular Volume 90.6 fL (81.0-99.0); Nucleated Red Blood Cells % 0 %; Platelet Count 269 10^3/uL (130-400); Red Cell Dist. Width 12.7 % (11.5-14.5)
[2025-04-11 06:53] LABS: ALT (SGPT) 23 U/L (0-35); AST (SGOT) 19 U/L (14-36); Albumin 3.9 g/dl (3.5-5.0); Alkaline Phosphatase 68 U/L (38-126); Blood Urea Nitrogen 15 mg/dl (7-17); Calcium 8.7 mg/dl (8.4-10.2); Carbon Dioxide 29 mmol/L (22-30); Chloride 104 mmol/L (98-107); Estimated Creatinine Clearance 95 ml/min; Glucose 99 mg/dl (70-99); Potassium 4.6 mmol/L (3.5-5.1); Sodium 137 mmol/L (135-145); Total Protein 6.2 g/dl (6.3-8.2); eGFR > 60.00
[2025-04-11 07:00] VITALS: BP 135/84
[2025-04-11] MEDS: ZESTRIL 10 MG PO (08:24)
[2025-04-11] MEDS: LYRICA 150 MG PO ×3 (08:24→22:52)
[2025-04-11] MEDS: CYMBALTA DELAYED RELEASE 20 MG PO (08:24)
[2025-04-11] MEDS: ROXICODONE 20 MG PO ×4 (08:32→19:47)
[2025-04-11] MEDS: MS CONTIN (EXTENDED RELEASE) 30 MG PO ×2 (08:32→19:48)
--- NOTE | 2025-04-11 08:49 | W.PN.HOSP.TC ---
Addendum entered and electronically signed by Eamon Raman MD 04/11/25 12:05:
Seen and examined by me independently in collaboration with the medical transcription radiology.
Lab data reviewed.
Addendum as below :
Acute flare up of her RCPS .Unclear trigger.
On home narcotic regimen, Gabapentin, Ms relaxants, antidepressants at home.
CW IV pain meds for now.
If continued need of iv pain meds , will touch base with primary pain media traffic manager in am for adjuvant /other therapies. Pt had prior Ketamine infusions as OP.
Original Note:
Today's Communication/Plan
-
Follow up with PCP.
Assessment / Plan
Assessment / Plan
44 yrs old F with h/o Acute on Chronic Pain, Chronic Opioid Dependence, Small Fiber Polyneuropathy / CRPS, Anxiety / Depression, Migraines presented with left side hip pain.
# chronic regional pain syndrome:
Patient experiences this symptoms always which is relieved with opioid medications.
She c/o non specified chest pain,
WELL score for pulmonary emboli= 1.5 (Heart rate = 110) h/o non specified chest pain, D-Dimer is within normal range, which rules out Pulmonary Emboli.
# Chronic Opioid Dependence:
morphine 30 mg Tablet Extended Release patient was taking at home.
#Anxiety / Depression:
-Continue duloxetine 20 mg daily
- Continue alprazolam 0.5 mg daily as needed
#Benign Hypertension:
BP 149/90
-Continue lisinopril 10 mg daily
DVT prophylaxis: SCD
Anticipated Discharge: Today
Subjective/Interval History
-
Date of Service: April 11, 2025
Patient has a concerns for left side hip pain starting from hip to the toe. associated with insomnia. She is mentioning her opioid medication dosage is not sufficient to control her pain.
Objective Data
-
Labs:
04/11/25 06:03
04/11/25 06:03
Laboratory Results
Total Bilirubin 0.6 mg/dl (0.2-1.3) 04/11/25 06:03
AST 19 U/L (14-36) 04/11/25 06:03
ALT 23 U/L (0-35) 04/11/25 06:03
Alkaline Phosphatase 68 U/L (38-126) 04/11/25 06:03
Laboratory Results
04/11/25
06:03
WBC 8.0
Hgb 13.2
Hct 40.7
Plt Count 269 D
Sodium 137
Potassium 4.6
Chloride 104
Carbon Dioxide 29
BUN 15
Creatinine 0.9
Glucose 99
Calcium 8.7
Total Bilirubin 0.6
AST 19
ALT 23
Alkaline Phosphatase 68
Vital Signs:
Vital Signs
Temp Pulse Resp BP Pulse Ox
97.6 F 50 19 135/84 98
04/11/25 07:00 04/11/25 07:00 04/11/25 07:00 04/11/25 07:00 04/11/25 07:00
I&O
04/10/25 04/11/25 04/12/25
06:59 06:59 06:59
Intake Total 2139
Balance 2139
Review of Systems
-
History Source: Patient
Constitutional: Reports No Symptoms
Respiratory: Reports No Symptoms
Cardiac: Reports No Symptoms
Abdomen/GI: Reports No Symptoms
Breast: Reports No Symptoms
Genitourinary: Reports No Symptoms
Musculoskeletal: Reports No Symptoms
Skin: Reports Itching (head is itching that she wants to keep on scratching her head, left side hand. ), Skin Thickening and Other (burning sensation all over the body)
Neuro: Reports No Symptoms
Endocrine: Reports No Symptoms
Hematologic / Lymphatic: Reports No Symptoms
Allergy / Immunology: Reports No Symptoms
Psych: Reports Sad and Other
Physical Exam
-
General: Appears in Distress and Pain
HEENT: Moist Mucous Membranes
Respiratory: Clear to Auscultation
Cardiac: Regular Rhythm and S1/S2
GI: Soft, Nontender and Nondistended
Genito-urinary: No Costovertebral Tender
Skin: Warm
Neuro: AO x 3
Hematologic / Lymphatic: No Lymphadenopathy
Psych: Calm
--- NOTE | 2025-04-11 12:01 | CM ---
Patient seen at bedside
OBS status - form in chart
states pain mgmt appt on
PLAN: Home, no needs when stable
to transport
--- NOTE | 2025-04-11 12:35 | PTCARENOTE ---
Patient c/o persistent whol body pain, but worse on left side and left groin area. Patient describes pain as burning and stabbing. Dilaudid given with some relief. Patient having difficult time sleeping. patient is falling asleep after given
Dilaudid, but only for short period of time. Door closed, eye mask given.
[2025-04-11 15:00] VITALS: BP 146/94
[2025-04-11] MEDS: ZANAFLEX 6 MG PO (22:52)
[2025-04-11 23:03] VITALS: BP 135/86
[2025-04-12] MEDS: DILAUDID 1 MG IV ×5 (02:54→22:44)
--- NOTE | 2025-04-12 05:28 | PTCARENOTE ---
Pt tearful at times due to pain. PRN pain medication administered as ordered. No ohter issues to report. Will continue to monitor.
[2025-04-12 06:02] LABS: Hematocrit 38.9 % (37.0-47.0); Hemoglobin 13.0 g/dL (12.0-16.0); Mean Corp Hgb Conc. 33.4 g/dL (33.0-37.0); Mean Corpuscular Volume 89.8 fL (81.0-99.0); Nucleated Red Blood Cells % 0 %; Platelet Count 279 10^3/uL (130-400); Red Cell Dist. Width 12.4 % (11.5-14.5)
[2025-04-12 06:43] LABS: ALT (SGPT) 24 U/L (0-35); AST (SGOT) 21 U/L (14-36); Albumin 3.9 g/dl (3.5-5.0); Alkaline Phosphatase 105 U/L (38-126); Blood Urea Nitrogen 15 mg/dl (7-17); Calcium 8.9 mg/dl (8.4-10.2); Carbon Dioxide 29 mmol/L (22-30); Chloride 105 mmol/L (98-107); Estimated Creatinine Clearance 107 ml/min; Glucose 117 mg/dl (70-99); Potassium 4.7 mmol/L (3.5-5.1); Sodium 138 mmol/L (135-145); Total Protein 6.1 g/dl (6.3-8.2); eGFR > 60.00
[2025-04-12 07:00] VITALS: BP 133/76
--- NOTE | 2025-04-12 07:32 | W.PN.HOSP.TC ---
Addendum entered and electronically signed by Juvenal Monique MD, Resident 04/12/25 18:32:
Provided the patient with [facility] CRPS clinic information and contact number for appt. Patient very appreciative of information.
Addendum entered and electronically signed by Marcellus Devi MD 04/12/25 15:09:
Acute on chronic regional pain syndrome, unfortunately intractable debilitating pain from regional pain syndrome, unable to ambulate at this time. But not in flare typically ambulates with a walker or a cane
- On chronic opioids and muscle relaxers which we have continued
- Continue Dilaudid 1 mg IV every 4 hours. If pain miraculously improving on this then can trial Dilaudid 0.5 mg IV every 4 hours
- She has a pain management visit tomorrow, she is trying to have this appointment converted to Televist. She is going to see a neurologist at the end of Apr
- I discussed with her that she may consider following up with [facility] CRPS clinic as they have a multidisciplinary team there which includes neurosurgeons orthopedic surgeons neurologist.
- She has a history of receiving ketamine infusions however has not been able to do so as the clinics have closed down
- Outpatient she has found a neurologist in [place] who will send a ketamine torches by the mail and will receive it on
Original Note:
Today's Communication/Plan
-
Continue home pain medication and IV Dilaudid 1 Q4
Plan to discharge home tomorrow morning with instructions to follow-up with outpatient pain management.
Assessment / Plan
Assessment / Plan
44 yrs old F with h/o Acute on Chronic Pain, Chronic Opioid Dependence, Small Fiber Polyneuropathy / CRPS, Anxiety / Depression, Migraines presented with left-sided body pain and believes that this is a flareup of her CRPS.
# Chronic regional pain syndrome:
-Unknown trigger
-History of flareups every 4 to 6 months
-On chronic opioids
-Pain is controlled at current home medications and additional Dilaudid 1 mg IV every 4; patient is very reluctant to decrease the dose at this time.
-She has an appointment tomorrow with outpatient pain specialist for further recommendations; will monitor her tonight and will keep Dilaudid 1 mg; she will inform the nurse if her pain is controlled and she does not need a full 1 mg in that case we
will give 0.5 mg. Nurse aware
- Provided the name of CRPS clinic at [place] patient plans to explore that.
# Chronic Opioid Dependence:
-Patient is on high doses of opioids including morphine 30 mg twice daily, oxycodone 20 mg every 6, pregabalin 150 mg 3 times daily, tizanidine 6 mg at bedtime; will continue dose during her hospital stay
- Discussed the possibility of opioid-induced hyperalgesia; patient aware and plan to discuss with pain specialist
#Anxiety / Depression:
-Continue duloxetine 20 mg daily
-Continue alprazolam 0.5 mg daily as needed
#Benign Hypertension:
-Stable
-Continue lisinopril 10 mg daily
DVT prophylaxis: SCD
Discharge tomorrow a.m. if stable
Anticipated Discharge: Within 24 hours
Subjective/Interval History
-
Date of Service: April 12, 2025
Patient reports ongoing intermittent pain in multiple areas of her body mostly on the left side mostly in the lower extremity. Reports that she had trouble sleeping last night due to pain. She continues to get the as needed Dilaudid dose which
provide transient benefit.
Objective Data
-
Labs:
Laboratory Results
04/12/25
05:48
WBC 8.9
Hgb 13.0
Hct 38.9
Plt Count 279
Sodium 138
Potassium 4.7
Chloride 105
Carbon Dioxide 29
BUN 15
Creatinine 0.8
Glucose 117 H
Calcium 8.9
Total Bilirubin 0.3
AST 21
ALT 24
Alkaline Phosphatase 105
Vital Signs:
Vital Signs
Temp Pulse Resp BP Pulse Ox
97.8 F 67 16 135/86 100
04/11/25 23:03 04/11/25 23:03 04/11/25 23:03 04/11/25 23:03 04/11/25 23:03
I&O
04/11/25 04/12/25 04/13/25
06:59 06:59 06:59
Intake Total 2139
Balance 2139
Review of Systems
-
History Source: Patient
Constitutional: Reports No Symptoms
Respiratory: Reports No Symptoms
Cardiac: Reports No Symptoms
Abdomen/GI: Reports No Symptoms
Breast: Reports No Symptoms
Genitourinary: Reports No Symptoms
Musculoskeletal: Reports Arthralgias and Myalgias
Skin: Reports Other (burning sensation all over the body)
Neuro: Reports No Symptoms
Endocrine: Reports No Symptoms
Hematologic / Lymphatic: Reports No Symptoms
Allergy / Immunology: Reports No Symptoms
Physical Exam
-
General: Obese and Other (Patient continuously moving and appears restless because of pain)
HEENT: Moist Mucous Membranes
Respiratory: Clear to Auscultation
Cardiac: Regular Rhythm and S1/S2
GI: Soft, Nontender and Nondistended
Genito-urinary: No Costovertebral Tender
Musculoskeletal: No Clubbing, No Cyanosis and No Edema
Skin: Warm; Negative Rash
Neuro: AO x 3
Hematologic / Lymphatic: No Lymphadenopathy
Psych: Other (Patient appears sad because of her ongoing condition)
Data Reviewed
-
Labs: Labs Reviewed by me, Discussed with Physician and Discussed with Patient
[2025-04-12] MEDS: CYMBALTA DELAYED RELEASE 20 MG PO (07:46)
[2025-04-12] MEDS: ZESTRIL 10 MG PO (07:47)
[2025-04-12] MEDS: MS CONTIN (EXTENDED RELEASE) 30 MG PO ×2 (07:47→21:06)
[2025-04-12] MEDS: LYRICA 150 MG PO ×3 (07:47→21:00)
[2025-04-12] MEDS: ROXICODONE 20 MG PO ×4 (07:48→21:06)
[2025-04-12] MEDS: XANAX 0.5 MG PO ×2 (12:47→22:44)
--- NOTE | 2025-04-12 15:29 | CM ---
Addendum entered by Jackie Bonner 04/12/25 15:58:
Transitioned to inpatient status.
Original Note:
Discharge POC: Anticipate discharge on 04/13/25 with follow-up to outpatient pain management. to transport home.
[2025-04-12 15:33] VITALS: BP 132/78
[2025-04-12] MEDS: ZANAFLEX 6 MG PO (21:00)
[2025-04-12 23:00] VITALS: BP 145/88
--- NOTE | 2025-04-12 23:02 | PTCARENOTE ---
Patient aao x3 since start of shift. Patient c/o pain and anxiety, prn medications administered per orders. Patient describes pain as sharp, firey throughout left side, unchanged per patient. Patient ambulating with use of rw or cane to bathroom.
Weakness noted throughout. Will continue to monitor.
[2025-04-13] MEDS: DILAUDID 1 MG IV ×5 (03:38→22:44)
[2025-04-13 07:00] VITALS: BP 130/80
--- NOTE | 2025-04-13 07:26 | W.PN.HOSP.TC ---
Addendum entered and electronically signed by Marcellus Devi MD 04/13/25 13:39:
Acute on chronic regional pain syndrome, unfortunately intractable debilitating pain from regional pain syndrome, unable to ambulate at this time. But not in flare typically ambulates with a walker or a cane
- On chronic opioids and muscle relaxers which we have continued
- Continue Dilaudid 1 mg IV every 4 hours. If pain miraculously improving on this then can trial Dilaudid 0.5 mg IV every 4 hours
- She has a pain management visit today, she is trying to have this appointment converted to Televist. She is going to see a neurologist at the end of Apr
- I discussed with her that she may consider following up with [place] for CRPS clinic as they have a multidisciplinary team there which includes neurosurgeons orthopedic surgeons neurologist.
- She has a history of receiving ketamine infusions however has not been able to do so as the clinics have closed down
- Outpatient she has found a neurologist in [place] who will send a ketamine torches by the mail and will receive it on
Original Note:
Today's Communication/Plan
-
Discharge home with instructions to follow-up with pain specialist outpatient.; Patient reviewed from callback from pain management office; patient might go home in the AM
Patient to explore [facility] clinic
Assessment / Plan
Assessment / Plan
44 yrs old F with h/o Acute on Chronic Pain, Chronic Opioid Dependence, Small Fiber Polyneuropathy / CRPS, Anxiety / Depression, Migraines presented with left-sided body pain and believes that this is a flareup of her CRPS.
# Acute on Chronic regional pain syndrome:
-Unknown trigger
-History of flare ups every 4 to 6 months
-On chronic opioids
-Pain is controlled at current home medications and additional Dilaudid 1 mg IV every 4; patient is very reluctant to decrease the dose at this time.
-She has an appointment tomorrow with outpatient pain specialist for further recommendations; will monitor her tonight and will keep Dilaudid 1 mg; she will inform the nurse if her pain is controlled and she does not need a full 1 mg in that case we
will give 0.5 mg. Nurse aware
- Provided the name of CRPS clinic at [place] patient plans to explore that.
- Patient reports that she ran out of her home pain meds and trying to get in touch with the pain specialist so they can send her prescription.
# Chronic Opioid Dependence:
-Patient is on high doses of opioids including morphine 30 mg twice daily, oxycodone 20 mg every 6, pregabalin 150 mg 3 times daily, tizanidine 6 mg at bedtime; will continue dose during her hospital stay
- Previously discussed the possibility of opioid-induced hyperalgesia; patient aware and plan to discuss with pain specialist
# Left greater trochanteric bursitis
- Discussed the use of NSAIDs, ICE, topicals including voltaren gel, lidocaine patches.
- Discussed the importance of potential steroid injection in the bursa with outpatient pain medicine; she verified understanding
#Anxiety / Depression:
-Continue duloxetine 20 mg daily
-Continue alprazolam 0.5 mg daily as needed
#Benign Hypertension:
-Stable on meds
-Continue lisinopril 10 mg daily
DVT prophylaxis: SCD
Discharge today.
Anticipated Discharge: Today
Subjective/Interval History
-
Date of Service: April 13, 2025
Patient continues to have intermittent pain and movements of the body mostly on the left side. She reports she has been noticing pain on the lateral side of her left hip. She continues to get benefit with IV Dilaudid.
Objective Data
-
Vital Signs:
Vital Signs
Temp Pulse Resp BP Pulse Ox
98.2 F 60 20 145/88 97
04/12/25 23:00 04/12/25 23:00 04/12/25 23:00 04/12/25 23:00 04/13/25 00:25
I&O
04/12/25 04/13/25 04/14/25
06:59 06:59 06:59
Intake Total 1919
Balance 1919
Review of Systems
-
History Source: Patient
Constitutional: Reports No Symptoms
Respiratory: Reports No Symptoms
Cardiac: Reports No Symptoms
Abdomen/GI: Reports No Symptoms
Breast: Reports No Symptoms
Genitourinary: Reports No Symptoms
Musculoskeletal: Reports Arthralgias and Myalgias
Skin: Reports Other (burning sensation all over the body)
Neuro: Reports No Symptoms
Endocrine: Reports No Symptoms
Hematologic / Lymphatic: Reports No Symptoms
Allergy / Immunology: Reports No Symptoms
Physical Exam
-
General: Obese and Other (Patient continuously moving and appears restless because of pain)
HEENT: Moist Mucous Membranes
Respiratory: Clear to Auscultation
Cardiac: Regular Rhythm and S1/S2
GI: Soft, Nontender and Nondistended
Genito-urinary: No Costovertebral Tender
Musculoskeletal: No Clubbing, No Cyanosis, No Edema and Other (Tender to touch near the left greater trochanteric bursa)
Skin: Warm; Negative Rash
Neuro: AO x 3
Hematologic / Lymphatic: No Lymphadenopathy
Psych: Calm
[2025-04-13] MEDS: MS CONTIN (EXTENDED RELEASE) 30 MG PO ×2 (07:55→18:10)
[2025-04-13] MEDS: LYRICA 150 MG PO ×3 (08:40→21:38)
[2025-04-13] MEDS: CYMBALTA DELAYED RELEASE 20 MG PO (08:41)
[2025-04-13] MEDS: ZESTRIL 10 MG PO (08:41)
[2025-04-13] MEDS: ROXICODONE 20 MG PO ×4 (08:41→20:11)
[2025-04-13] MEDS: XANAX 0.5 MG PO ×2 (10:25→22:44)
--- NOTE | 2025-04-13 12:23 | CM ---
Patient seen at bedside
follow-up to outpatient pain management, she states she has telehealth appt today at 5:30
PLAN: home, no needs
to transport
[2025-04-13 15:07] VITALS: BP 123/79
[2025-04-13] MEDS: ZANAFLEX 6 MG PO (21:38)
[2025-04-13 23:04] VITALS: BP 142/92
[2025-04-14 07:00] VITALS: BP 127/69
[2025-04-14] MEDS: MS CONTIN (EXTENDED RELEASE) 30 MG PO (07:06)
[2025-04-14] MEDS: DILAUDID 1 MG IV ×2 (07:22→11:31)
--- NOTE | 2025-04-14 07:39 | W.PN.HOSP.TC ---
Addendum entered and electronically signed by Marcellus Devi MD 04/15/25 15:56:
Acute on chronic regional pain syndrome, unfortunately intractable debilitating pain from regional pain syndrome, unable to ambulate at this time. But not in flare typically ambulates with a walker or a cane
- On chronic opioids and muscle relaxers which we have continued
- Continue Dilaudid 1 mg IV every 4 hours. If pain miraculously improving on this then can trial Dilaudid 0.5 mg IV every 4 hours
- She has a pain management visit today, she is trying to have this appointment converted to Televist. She is going to see a neurologist at the end of Apr
- I discussed with her that she may consider following up with [place] for CRPS clinic as they have a multidisciplinary team there which includes neurosurgeons orthopedic surgeons neurologist.
- She has a history of receiving ketamine infusions however has not been able to do so as the clinics have closed down
- Outpatient she has found a neurologist in [place] who will send a ketamine torches by the mail and will receive it on
On the day of discharge she was appreciated for the support and CRP clinic recommendations/phone number provided.
More than 30 minutes spent in discharge including
Final examination of the patient
Summarizing hospital stay
Instructions for continuing care to all relevant caregivers
Preparation of discharge records, prescriptions, and referral forms
Total time spent (in minutes): 33
Original Note:
Today's Communication/Plan
-
d/c home w/ follow up with mobile paint specialist.
Assessment / Plan
Assessment / Plan
44 yrs old F with h/o Acute on Chronic Pain, Chronic Opioid Dependence, Small Fiber Polyneuropathy / CRPS, Anxiety / Depression, Migraines presented with left-sided body pain and believes that this is a flareup of her CRPS.
# Acute on Chronic regional pain syndrome:
-Unknown trigger
-History of flare ups every 4 to 6 months
-On chronic opioids
-Pain is controlled at current home medications and additional Dilaudid 1 mg IV every 4; patient is very reluctant to decrease the dose at this time.
-She has an appointment tomorrow with outpatient pain specialist for further recommendations
- Provided the name of CRPS clinic at [place] patient plans to explore that.
- Patient reports that she ran out of her home pain meds and trying to get in touch with the pain specialist so they can send her prescription -- pain medication sent by pain specialist to pharmacy, ready for pickup
# Chronic Opioid Dependence:
- Patient is on high doses of opioids including morphine 30 mg twice daily, oxycodone 20 mg every 6, pregabalin 150 mg 3 times daily, tizanidine 6 mg at bedtime; will continue dose during her hospital stay
- Previously discussed the possibility of opioid-induced hyperalgesia; patient aware and plan to discuss with pain specialist
# Left greater trochanteric bursitis
- Discussed the use of NSAIDs, ICE, topicals including voltaren gel, lidocaine patches.
- Discussed the importance of potential steroid injection in the bursa with outpatient pain medicine; she verified understanding
#Anxiety / Depression:
-Continue duloxetine 20 mg daily
-Continue alprazolam 0.5 mg daily as needed
#Benign Hypertension:
-Stable on meds
-Continue lisinopril 10 mg daily
DVT prophylaxis: SCD
Discharge today.
Anticipated Discharge: Today
Subjective/Interval History
-
Date of Service: April 14, 2025
Having an episode of Left hip pain radiating down the Left leg into the foot and left leg numbness/weakness from the L knee down to the foot. No trauma/falls overnight.
Objective Data
-
Vital Signs:
Vital Signs
Temp Pulse Resp BP Pulse Ox
98.1 F 68 16 142/92 97
04/13/25 23:04 04/13/25 23:04 04/13/25 23:04 04/13/25 23:04 04/13/25 23:04
I&O
04/13/25 04/14/25 04/15/25
06:59 06:59 06:59
Intake Total 20390 / 104
Balance 2039 / 1039
Review of Systems
-
History Source: Patient
All other systems: Reviewed and negative
Constitutional: Reports No Symptoms
EENT: Reports No Symptoms Reported
Respiratory: Reports No Symptoms
Cardiac: Reports No Symptoms
Abdomen/GI: Reports No Symptoms
Breast: Reports No Symptoms
Genitourinary: Reports No Symptoms
Musculoskeletal: Reports No Symptoms
Skin: Reports No Symptoms
Neuro: Reports Other (Weakness/pain of the entire Left Leg, Numbness of the Left leg from knee to foot)
Endocrine: Reports No Symptoms
Hematologic / Lymphatic: Reports No Symptoms
Physical Exam
-
General: Well Developed, Well Nourished, No Apparent Distress and Pain
HEENT: Normocephalic, Atraumatic, Moist Mucous Membranes, Anicteric, Highfill Conjunctivae, No Ptosis, PERRLA, Nose Appears Normal and Ears Appear Normal
Respiratory: Clear to Auscultation and Non Labored Respirations; Negative Wheezes, Rales or Rhonchi
Cardiac: Regular Rhythm and S1/S2; Negative Murmur, Rub or Gallop
Breast: Deferred by me
GI: Soft, Nontender, Nondistended and Normal Bowel Sounds
Genito-urinary: Deferred by me
Musculoskeletal: No Clubbing, No Cyanosis, No Edema and Other (Tenderness to palpation of the Left hip)
Skin: Warm, Dry and IV Access / Catheter Site
Neuro: AO x 3 and Other (2/5 motor strength in the LLE, 5/5 RLE. Sensory deficit in the L leg from the knee to the foot, sensation preserved above the knee. )
Psych: Calm
[2025-04-14] MEDS: LYRICA 150 MG PO (07:51)
[2025-04-14] MEDS: ROXICODONE 20 MG PO ×2 (07:51→11:54)
[2025-04-14] MEDS: ZESTRIL 10 MG PO (07:51)
[2025-04-14] MEDS: CYMBALTA DELAYED RELEASE 20 MG PO (07:51)
[2025-04-14 13:12] VITALS: BP 112/70
--- NOTE | 2025-04-14 14:06 | CM ---
Patient discharged today
IMM n/a
PLAN: Home, no needs
to transport
--- NOTE | 2025-04-14 18:47 | W.DCSUMMARY ---
Discharge Summary
Discharge Data
Date of Admission: 04/12/25
Date of Discharge: 04/14/25
Total time spent discharging patient (in min): >30m
-
Pending Results: No
Hospital Course
Discharging Physician : Dr. Marcellus Devi
Disposition : Home
Primary care physician : Unknown
Principal Discharge diagnosis : Acute exacerbation of complex regional pain syndrome with unclear trigger
Chronic Discharge diagnosis : Chronic opioid dependence, left greater trochanteric bursitis, anxiety, depression, benign hypertension
Hospital Course :
43-year-old female admitted for left-sided body pain, believed to be flareup of complex regional pain syndrome with unclear triggering event. She was kept on home dose medication, including narcotic pain medication, neuropathic pain medication,
muscle relaxants, and managed with IV Dilaudid 1 mg every 4 as needed for breakthrough pain. She had a history of requiring ketamine infusions as outpatient to control pain. Following discussions with patient and outpatient physicians, she was
given information for [facility] CRPS clinic in order to set up an appointment on discharge. Neurologist appointment scheduled for end of April. Patient was ultimately discharged home with specialty medication (ketamine troches) sent to local
pharmacy and follow up with CRPS Clinic set-up per patient.
Important imaging findings :
CR Chest Portable - 1 View (04/11/2025):
IMPRESSION:
1. Clear lungs.
2. No significant change compared to prior study.
Procedure findings :
None.
Discharge Plan
-
Patient Disposition: Home (Routine Discharge)
Discharge Diagnosis/Procedures: Complex regional pain syndrome
Condition: Fair
Diet: No restrictions
Activity: No restrictions
Driving Restrictions: As prior to admission
Bathing Restrictions: None
Referrals:
UNKNOWN - PT DOES,NOT KNOW [Family Provider]
Additional Discharge Medication Instructions: Follow up with PCP within a week of discharge.
Prescriptions:
Continued
tizanidine 2 mg Tablet
6 mg PO HS
morphine 30 mg Tablet Extended Release
30 mg PO BID@
Patient Comments:
This medication was just increased on 03/16/2025 by [facility] pain management
04/12/25: filled morphine ER 30mg tablets #60 tablets on 03/16/25 at [id number] Barrett Fajardo
duloxetine 20 mg Capsule,Delayed Release(Dr/Ec)
20 mg PO DAILY
pregabalin 150 mg Capsule
150 mg PO TID
Patient Comments:
04/12/25: filled pregabalin 150mg capsules #90 on 03/17/25 at [id number] - Dr Fajardo
ibuprofen-acetaminophen [Advil Dual Action] 125-250 mg Tablet
2 tab PO Q8HPRN PRN (Reason: mild pain)
oxycodone 20 mg tablet
20 mg PO DAILY@08,12,16,20
Patient Comments:
04/12/25: filled oxycodone IR 20mg tablets #120 on 03/16/25 at [facility] Barrett Fajardo
alprazolam 0.5 mg Tablet
0.5 mg PO DAILYPRN PRN (Reason: anxiety)
Patient Comments:
04/12/25: filled alprazolam 0.5mg #30 tablets on 02/18/25 at [id number] Delgado
lisinopril 10 mg Tablet
10 mg PO DAILY
Discharge Orders:
Discharge Patient (As Directed); Ordered 04/14/25
Ordered By: Abundio Eisenberg
Discharge Date and Time
Discharge Date/Time: 04/14/25 14:19
Print Language: POLISH
== END 2025-04-14 14:19 | disposition home or self-care (01) | DRG 74 ==
LOC: 3 WEST ACU 14:34
PROVIDERS: Emergency Medicine; Internal Medicine; ADMITTING PHYSICIAN Hospitalist; ATTENDING PHYSICIAN Hospitalist; EMERGENCY PHYSICIAN Emergency Medicine
DX: G90.522 Complex regional pain syndrome I of left lower limb (principal); F11.20 Opioid dependence, uncomplicated; G90.512 Complex regional pain syndrome I of left upper limb; M70.62 Trochanteric bursitis, left hip; F32.A Depression, unspecified; I10 Essential (primary) hypertension; Z82.49 Family history of ischemic heart disease and other diseases of the circulatory system; G62.9 Polyneuropathy, unspecified; G43.909 Migraine, unspecified, not intractable, without status migrainosus; Z79.899 Other long term (current) drug therapy; G89.4 Chronic pain syndrome; F17.210 Nicotine dependence, cigarettes, uncomplicated; F41.0 Panic disorder [episodic paroxysmal anxiety]; Z87.442 Personal history of urinary calculi; Z80.1 Family history of malignant neoplasm of trachea, bronchus and lung
CPT/HCPCS: 71045; 80053; 84703; 85025; 85379; 96374; 96376; 99284